=== PATIENT | male | born 1970 | race Two or more races ===

== ENCOUNTER 2024-12-23 06:01 | Emergency (ER) | payer OTHER, SELFPAY ==
--- NOTE | 2024-12-23 | ECG_ITS ---
Test Reason : CP Blood Pressure : */* mmHG Vent. Rate : 67 BPM Atrial Rate : 67 BPM P-R Int : 144 ms QRS Dur : 88 ms QT Int : 390 ms P-R-T Axes : 63 -6 41 degrees QTcB Int : 412 ms Normal sinus rhythm Nonspecific T wave abnormality Abnormal ECG No previous ECGs available Referred By: Generic ED Physician Electronically Signed By: GERARD BANDA
--- NOTE | ~2024-12-23 | CT_ITS ---
CLINICAL HISTORY: LUQ pain, hernia CT abdomen and pelvis without contrast Comparison: None Findings: A 3 mm nodule is suggested within the right lower lobe on axial image 1. 2 mm pleural-based nodule, left lower lobe on axial 5. The liver, spleen, gallbladder, pancreas and adrenal glands are unremarkable. 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 There is a dilated thick-walled cystic structure within the right upper quadrant measuring up to 7.3 times 6.5 cm may be arising from the upper pole of the inferior kidney. There is mild stranding about this structure. There is no bowel obstruction or free air. The appendix is normal. No free fluid. The bladder is partially distended. The prostate gland is unremarkable. No suspicious bone lesion. Mild atherosclerotic disease. 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 This may also reflect a dilated inferior renal pelvis. Correlation for urinary tract infection. A urogram with delayed imaging could be considered. This document has been electronically signed by: Cory Novoa MD on 12/23/2024 10:31:41
--- NOTE | ~2024-12-23 | XR_ITS ---
CLINICAL HISTORY: chest pain 1 view chest x-ray. Comparison: None Findings: The lungs are adequately expanded. No focal consolidation. No effusion or pneumothorax. Cardiac and mediastinal contours are within normal limits. No acute osseous abnormality Impression: No acute process. This document has been electronically signed by: Cory Novoa MD on 12/23/2024 09:37:01
[2024-12-23 06:13] VITALS: BP 137/76; PULSE 61; RESP 18; TEMP 36.6; O2SAT 97; BMI 27.4
--- NOTE | 2024-12-23 06:36 | PC.NURSE ---
pt initially checked in as CP so ekg was ordered per protocol. upon assessing for triage pt denies cp. reports feels lump to LUQ abdomen x 3 days, pain with movement. 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 also reports R. thumb pain, shooting pain up RUE with movement x 1 month. awaiting provider eval for further labs/imaging.
[2024-12-23 08:57] VITALS: BP 133/84; PULSE 52; RESP 14; TEMP 36.8; O2SAT 100
--- NOTE | 2024-12-23 08:59 | PC.NURSE ---
IV established, labs obtained and sent. urine provided as well
[2024-12-23 09:05] LABS: MANUAL DIFF FLAG NO
[2024-12-23 09:06] LABS: Basophils Percent Auto 0.8 % (0-2); Eosinophils Percent Auto 0.4 % (0-4); Hematocrit 46.2 % (42.0-52.0); Hemoglobin 15.5 g/dl (14.0-18.0); Imm Gran Abs Auto 0.01 X10*3/uL (0.00-0.03); Imm Gran Pct Auto 0.2 % (0.0-0.4); Lymphocytes Absolute Auto 2.4 X10*3/uL (1.2-4.9); Lymphocytes Percent Auto 45.4 % (20-40); Mean Corpuscular HGB Conc 33.5 g/dl (31.0-36.0); Mean Corpuscular Hemoglobin 30.6 pg (27.0-33.0); Mean Corpuscular Volume 91.3 fL (80.0-98.0); Mean Platelet Volume 9.9 fL (9.4-12.4); Monocytes Absolute Auto 0.5 X10*3/uL (0.1-1.2); Monocytes Percent Auto 9.8 % (2-11); Neutrophils Absolute Auto 2.3 x10*3/uL (2.0-8.3); Neutrophils Percent Auto 43.4 % (45-73); Platelet Count 197 X10*3/uL (160-400); Red Blood Count 5.06 X10*6/uL (4.60-5.80); Red Cell Distribution Width 13.4 % (11.0-16.0); White Blood Count 5.3 X10*3/uL (4.8-10.8)
--- NOTE | 2024-12-23 09:11 | ED_ITS ---
HPI - General Adult General Chief complaint: General Medical Stated complaint: chest pain Time Seen by Provider: 12/23/24 08:45 Source: patient and emergency specialist (Wallisian Creole) Mode of arrival: ambulatory Limitations: no limitations History of Present Illness ED Provider: DR. Waters HPI narrative: 54-year-old male Wallisian Creole speaking only presented with 3 days of left upper quadrant/ lower chest pain for 3 days pain is intermittent, no clear aggravating factor, no clear relieving factor, no SOB, no fever, no chills, no recent travel, no lower extremity swelling or tenderness. No chest trauma Or injury. No nausea, no vomiting, no diarrhea, no recent travel, no exposure to bad food, no sick contacts. Patient is also complaining of right thumb pain x1 month. Related Data Allergies Allergy/AdvReac Type Severity Reaction Status Date / Time No Known Allergies Allergy Verified 12/23/24 06:18 Review of Systems 2 Review of Systems: all other systems are reviewed and are negative Constitutional: Reports as per HPI and Reports no additional constitutional complaints Eyes: Reports as per HPI and Reports no additional eye complaints Reports system reviewed and no additional complaints, except as documented Cardiovascular: Reports as per HPI and Reports no additional cardiovascular complaints Respiratory: Reports as per HPI and Reports no additional respiratory complaints Gastrointestinal: Reports as per HPI and Reports no additional gastrointestinal complaints Genitourinary: Reports no additional female genitourinary complaints Musculoskeletal: Reports no additional musculoskeletal complaints Skin/Breast: Reports system reviewed and no additional complaints, except as docu Psychiatric: Reports no additional psychiatric complaints Endocrine: Reports no additional endocrine complaints Hematologic/Lymphatic: Reports no additional hematologic/lymphatic complaints Allergic/Immunologic: Reports no additional allergic/immunologic complaints Reports system reviewed and no additional complaints, except as documented and Reports Abnormal speech present [facility] Social History Social History Advance Directives: No Advance Directives Information Provided: No Do you have a plan to hurt others: No Plan Physical Exam ED Vital Signs: Vital Signs - 24 hr 12/23/24 06:13 12/23/24 08:57 Temperature 97.8 F 98.2 F Pulse Rate 61 52 Respiratory Rate 18 14 Blood Pressure 137/76 133/84 Pulse Oximetry 97 100 Oxygen Delivery Method Room Air Room Air BMI result Body Mass Index 27.4 Vital signs have been reviewed and appear to be correct. Blood pressure elevated. Heart rate normal. Respiratory rate normal. Temperature normal. Oxygen saturation normal. Appearance: Alert. Oriented X3. No acute distress. Head: Normal external exam. Normocephalic. Atraumatic. No Zapata signs noted. No raccoon eyes noted Eyes: PERRLA. EOMI. Conjunctiva and sclera normal. Eyelids normal. ENT: TM's Normal. Pharynx normal. Uvula midline. Moist mucous membranes. No trismus noted. No drooling noted. No muffled voice noted. Neck: Normal inspection. Neck supple. FROM. No adenopathy. Thyroid Normal. No meningeal signs. No neck mass noted. CVS: Normal heart rate and rhythm. Heart sound normal. No murmurs noted. Pulses normal throughout. Respiratory: No respiratory distress. Painless inspiration. Breath sounds normal. No wheezes/rales/rhonchi noted. reproducible tenderness over left lower border of the sternum No accessory muscle usage noted or decreased air movement noted. Abdomen: Soft and nontender. Bowel sounds normal in all 4 quadrants. No distention noted. No organomegaly noted. No visible injury noted. Back: No CVA tenderness. Full range of motion noted. Skin: Skin warm and dry. Normal skin color. Normal skin turgor. No rashes/lesions/lacerations noted. Extremities: right hand exam: No deformity, no step-off, full range of motion of the thumb, neurovascularly intact. Neuro: Oriented X 3. Cranial nerve exam: II-XII are grossly intact No motor deficit. No sensory deficit. Reflexes normal. Course Reevaluation(s) Reevaluation #1: 54-year-old male with chest pain x3 days, exam is consistent with costochondritis. CT abdomen and pelvis showed no acute pathology. Time: 12:00 Medical Decision Making Differential Diagnosis Differential Diagnoses: The differential diagnosis associated with the presentation includes ( ACS, pneumonia, pneumothorax, pleural effusion, pancreatitis, gastritis, hernia, electrolyte derangement, severe anemia) Admission/Observation Consideration of admission/observation: Escalation of care including admission/observation considered Lab Data MDM Lab Attestation statement: I reviewed the patient's lab results. 12/23/24 08:45 12/23/24 08:45 Labs: Lab Results 12/23/24 Range/Units 08:45 WBC 5.3 (4.8-10.8) X10*3/uL RBC 5.06 (4.60-5.80) X10*6/uL Hgb 15.5 (14.0-18.0) g/dl Hct 46.2 (42.0-52.0) % MCV 91.3 (80.0-98.0) fL MCH 30.6 (27.0-33.0) pg MCHC 33.5 (31.0-36.0) g/dl RDW 13.4 (11.0-16.0) % Plt Count 197 (160-400) X10*3/uL MPV 9.9 (9.4-12.4) fL Immature Gran % (Auto) 0.2 (0.0-0.4) % Neut % (Auto) 43.4 L (45-73) % Lymph % (Auto) 45.4 H (20-40) % Sterling % (Auto) 9.8 (2-11) % Eos % (Auto) 0.4 (0-4) % Baso % (Auto) 0.8 (0-2) % Lymph # (Auto) 2.4 (1.2-4.9) X10*3/uL Sterling # (Auto) 0.5 (0.1-1.2) X10*3/uL Eos # (Auto) 0.0 (0.0-0.4) X10*3/uL Baso # (Auto) 0.0 (0.0-0.2) X10*3/uL Abs Immat Gran (auto) 0.01 (0.00-0.03) X10*3/uL Absolute Neuts (auto) 2.3 (2.0-8.3) x10*3/uL Absolute Nucleated RBC 0.000 (0.0-0.012) X10*3/uL Nucleated RBC % (auto) 0.0 (0.0-0.2) /100WBC Hold Blue Top SEE NOTE Sodium 142 (135-145) mmol/L Potassium 4.5 (3.3-5.1) mmol/L Chloride 108 (96-108) mmol/L Carbon Dioxide 24 (22-29) mmol/L Anion Gap 15 (12-20) BUN 17 H (9-16) mg/dL Creatinine 0.75 (0.5-1.4) mg/dL Estim Creat Clear Calc 110.2 Estimated GFR > 60 Random Glucose 107 (60-115) mg/dL Calcium 8.9 (8.4-10.2) mg/dL Total Bilirubin 0.3 (0.0-1.0) mg/dL AST 22 (5-37) U/L ALT 28 (0-40) U/L Alkaline Phosphatase 99 (39-117) U/L Total Protein 7.9 (6.5-8.0) g/dL Albumin 4.2 (3.5-5.0) g/dL Lipase 30 (8-78) U/L Urine Color Yellow Urine Appearance Clear Urine pH 6.0 (5.0-9.0) Ur Specific [place] 1.020 (1.005-1.025) Urine Protein Negative (Neg-Trace) mg/dL Urine Glucose (UA) Negative (Negative) mg/dL Urine Ketones Negative (Negative) mg/dL Urine Blood Negative (Negative) Urine Nitrite Negative (Negative) Ur Leukocyte Esterase Negative (Negative) Independent Interpretation I performed an independent interpretation of an: Plain X-Ray ( chest: No acute pathology.) and CT Scan ( Abdomen and pelvis: A 3 mm nodule is suggested within the right lower lobe on axial image 1. 2 mm pleural-based nodule, left lower lobe on axial 5. The liver, spleen, gallbladder, pancreas and adrenal glands are unremarkable. 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 Discharge Plan Discharge Clinical Impression: Costochondritis Patient Disposition: Home, Self-Care Instructions: Costochondritis (ED) Additional Instructions: take ibuprofen 200 mg tablet ([id number]) every 6 hours if needed for pain. Referrals: Johnnie Nam MD [Primary Care Provider] - Print Language: Wallisian Creole
[2024-12-23 09:14] LABS: Appearance Urine Clear; Color Urine Yellow; Glucose Urine UA Negative (Negative); Leukocyte Esterase Urine Negative (Negative); Nitrite Urine Negative (Negative); Urine Blood Negative (Negative); Urine Ketones Negative (Negative); Urine Protein Negative (Neg-Trace)
[2024-12-23 09:15] LABS: Alanine Aminotransferase 28 U/L (0-40); Albumin Level 4.2 g/dL (3.5-5.0); Alkaline Phosphatase 99 U/L (39-117); Anion Gap 15 (12-20); Aspartate Amino Transferase 22 U/L (5-37); Bilirubin Total 0.3 mg/dL (0.0-1.0); Blood Urea Nitrogen 17 mg/dL (9-16); Calcium 8.9 mg/dL (8.4-10.2); Carbon Dioxide 24 mmol/L (22-29); Chloride 108 mmol/L (96-108); Creatinine Clr Calc Pharmacy 110.2; Estimated Glomerular Filt Rate > 60; Glucose Random 107 mg/dL (60-115); Potassium 4.5 mmol/L (3.3-5.1); Sodium 142 mmol/L (135-145); Total Protein 7.9 g/dL (6.5-8.0)
[2024-12-23 10:01] LABS: Lipase 30 U/L (8-78)
[2024-12-23 13:07] VITALS: BP 126/80; PULSE 67; RESP 15; TEMP 36.7; O2SAT 97
[2024-12-23 13:25] VITALS: BP 126/80; PULSE 67; RESP 15; TEMP 36.7; O2SAT 97
== END 2024-12-23 13:26 | disposition home or self-care (01) ==
PROVIDERS: Emergency Provider Emergency Medicine; PCP Internal Medicine
DX: M94.0 Chondrocostal junction syndrome [Tietze] (principal); R07.89 Other chest pain; R10.12 Left upper quadrant pain; R10.2 Pelvic and perineal pain; Z79.899 Other long term (current) drug therapy
CPT/HCPCS: 36415; 71045; 74176; 80053; 81003; 83690; 85025; 93005; 99284

== ENCOUNTER → 2024-12-23 06:10 | Outpatient (BNV) | payer OTHER, SELFPAY | PROVIDERS: Emergency Provider Emergency Medicine; PCP Internal Medicine; Visit Provider Internal Medicine | DX: R94.31 Abnormal electrocardiogram [ECG] [EKG] (principal); R07.9 Chest pain, unspecified | CPT/HCPCS: 93010 ==

== ENCOUNTER → 2024-12-23 09:10 | Outpatient (BNV) | payer OTHER, SELFPAY | PROVIDERS: Emergency Provider Emergency Medicine; PCP Internal Medicine; Visit Provider Radiology Vascular & Interventional Radiology | DX: N20.0 Calculus of kidney (principal); R07.9 Chest pain, unspecified | CPT/HCPCS: 71045; 74176 ==

== ENCOUNTER 2025-01-16 12:06 | Outpatient (REF) | payer OTHER, SELFPAY ==
--- NOTE | ~2025-01-16 | XR_ITS ---
EXAMINATION: XR ABDOMEN 1 VIEW (KUB) HISTORY: lower abdominal pain COMPARISON: There are no prior studies for comparison. FINDINGS: Three supine views of the abdomen are submitted. The bowel gas pattern is unremarkable, without evidence of mechanical obstruction. There is a moderate amount of stool throughout the colon. There is a phlebolith in the right hemipelvis. There are no abnormal soft tissue masses. The bones are intact. XR/XR KUB IMPRESSION: Moderate amount of stool throughout the colon. Electronically signed by: Johnathon Padron MD 01/16/2025 01:42 PM KEVIN PAGE
--- OUTSIDE RECORDS SUMMARY | 2025-01-16 15:05 | XMS_ITS | Clinical Summary ---
Author Organization [employer] Address [address] [place] [address] Care Team Providers Care Vault Custodian Name Role Phone Unavailable Primary Care Provider Unavailabl e Allergies No known active allergies Medications ibuprofen 600 MG tabletIndicati ons:Right inguinal pain Take 1 tablet (600 mg) by mouth every 6 (six) hours if needed for mild pain for up to 14 days. 46 tablet 5 025 Active baclofen (Lioresal) 10 MG tabletIndicati ons:Right inguinal pain Take one tablet TID PRN 30 tablet 5 Active Blood Pressure kitIndications :Elevated blood pressure reading 1 each 2 times daily. 1 kit 5 026 Active psyllium (Metamucil Smooth Texture) 58.6 % powder Mix 1-2 tablespoonfuls in 8 oz of liquid and drink daily. 425 g 1 5 Active senna (Senokot) 8.6 MG tablet Take 1 tablet (8.6 mg) by mouth if needed at bedtime for constipation. 30 tablet 5 025 Active Encounters Date Type Department Care Team Description 01/16/2025 Telephone [facility] [address] [place] [phone] Sil Paris, RN Results 01/10/2025 2:20 PM EST Office Visit [facility] [address] [place], [place] [phone] Right inguinal pain (Primary Dx); Lower abdominal pain; Elevated blood pressure reading 01/10/2025 Telephone [facility] [address] [place], [place] [phone] Alma Islas, [facility] ED visit 12/23/23 from Last 3 Months Social History Tobacco Use Types Packs/Day Years Used Date Smoking Tobacco: Never Assessed Sex and Gender Information Value Date Recorded Sex Assigned at Male 01/10/2025 1:31 PM EST Legal Sex Male 1:02 PM EST Gender Identity Male 01/10/2025 1:31 PM EST Sexual Orientation Straight 01/10/2025 1: 31 PM EST Last Filed Vital Signs Vital Sign Reading Time Taken Comments Blood Pressure 140/84 01/10/2025 2:15 PM EST Pulse 68 01/10/2025 2:15 PM EST Temperature 36.7 ??C (98 ??F) 01/10/2025 2:15 PM EST Respiratory Rate 18 01/10/2025 2:15 PM EST Oxygen Saturation 97% 01/10/2025 2:15 PM EST Inhaled Oxygen Concentration - - Weight 84.1 kg (185 lb 6.4 oz) 01/10/2025 2:15 P M EST Height - - Body Mass Index - - Plan of Treatment Upcoming Encounters Date Type Department Care Team (Late st Contact Info) Description 02/25/2025 3:45 PM EDT Office Visit [facility] [address] [place], [place] [phone] Ayesha Szymanski NP [address] [place] [address] Health Maintenance Due Date Last Done Comments CT Colonography 1971 Colonoscopy 1971 Colorectal Cancer Screening 1971 Depression Screening 1971 FIT DNA/Cologuard 1971 FIT 1971 FOBT 1971 HIV Screening 1971 Lipid Panel 1971 SDOH Screening 1971 Sigmoidoscopy 1971 Alcohol/Substance Use Screening 1983 Tobacco Screening 1983 Hepatitis C Screening 1989 DTaP/Tdap/Td Vaccines (1 - Tdap) 1990 Hepatitis B Vaccines (1 of 3 - 19+ 3-dose series) 1990 Pneumococcal Vaccine: 50+ Ye ars (1 of 1 - PCV) 2021 Zoster Vaccines (1 of 2) 2021 COVID-19 Vaccine ( - 2023-2 5 season) 2024 Influenza Vaccine (#1) 2024 RSV Patients and Pa tients Aged 60 years or older (1 - 1-dose 75+ series) 2046 HIB Vaccines Aged Out No longer eligi ble based on patient's age to complete this topic HPV Vaccines Aged Out No longer eligi ble based on patient's age to complete this topic Hepatitis A Vaccines Aged Out No long er eligible based on patient's age to complete this topic IPV Vaccines Aged Out No longer eligi ble based on patient's age to complete this topic Meningococcal Vaccine Aged Out No cash anali eligible based on patient's age to complete this topic RSV under 20 months Aged Out No longe r eligible based on patient's age to complete this topic Rotavirus Vaccines Aged Out No longer eligible based on patient's age to complete this topic Procedures Procedure Name Priority Date/Time Associated Diagnosis Comments XR KUB AND UPRIGHT 2 VIEWS Routine 01/16/2025 12:07 PM EST Lower abdominal pain from Last 3 Months Results * XR KUB and Upright 2 Views (01/16/2025 12:07 PM EST) Anatomical Region Laterality Modality Radiographic Denise ging 01/16/2025 12:0 7 PM EST Narrative 01/16/2025 1:45 PM EST ?[facility] ?[address] ?[place] [address] ?XRay Report ? Signed ? Patient: Filippo Santiago ?MR#: [id number] ?? [id number] ? : 1970 ?Acct:[id number] ? Age/Sex: 54 / M ?ADM Date: 01/16/25 ? Loc: HO.HHCX ? Attending Dr: Shantel Huffman ? Ordering Physician: Shantel Huffman ?? Date of Service: 01/16/25 ?? Procedure(s): XR KUB ?? Accession Number(s): [id number] ? cc: Shantel Huffman ? EXAMINATION: ??XR ABDOMEN 1 VIEW (KUB) ? HISTORY: lower abdominal pain ? COMPARISON: There are no prior studies for comparison. ? FINDINGS: ??Three supine views of the abdomen are submitted. ?? The bowel ?? gas pattern is unremarkable, without evidence of mechanical ?? obstruction. There is a moderate amount of stool throughout the colon. ? There is a phlebolith in the right hemipelvis. ?? There are no abnormal ?? soft tissue masses. ??The bones are intact. ? XR/XR KUB ?? IMPRESSION: ?? Moderate amount of stool throughout the colon. ? Electronically signed by: ??Johnathon Padron MD ??01/16/2025 01:42 PM EST ?? RP ? Dictated By: ?Johnathon Padron MD ? Signed By: ?<Electronically signed by Johnathon Padron MD in OV> ?01/16/25 1342 ? DD/ 1207 ? TD/TT: 01/16/25 1300 ? Priest: ? Procedure Note Donjacqui, Image - 01/16/[address] [address] XRay Report Signed Patient: Filippo SantiagoMR#: [id number] : 1970Acct:[id number] Age/Sex: 54 / MADM Date: 01/16/25 Loc: HO.HHCX Attending Dr: Shantel Huffman Ordering Physician: Shantel Huffman Date of Service: 01/16/25 Procedure(s): XR KUB Accession Number(s): [id number] cc: Shantel Huffman EXAMINATION: XR ABDOMEN 1 VIEW (KUB) HISTORY: lower abdominal pain COMPARISON: There are no prior studies for comparison. FINDINGS: Three supine views of the abdomen are submitted. The bowel gas pattern is unremarkable, without evidence of mechanical obstruction. There is a moderate amount of stool throughout the colon. There is a phlebolith in the right hemipelvis. There are no abnormal soft tissue masses. The bones are intact. XR/XR KUB IMPRESSION: Moderate amount of stool throughout the colon. Electronically signed by: Johnathon Padron MD 01/16/2025 01:42 PM EST Dictated By: Johnathon Padron MD Signed By: <Electronically signed by Johnathon Padron MD in OV> 01/16/25 1342 DD/ 1207 TD/TT: 01/16/25 1300 Priest: Shantel Huffman NP IMG XR PROCEDURES Final Result from Last 3 Months Insurance [facility] C3
--- OUTSIDE RECORDS SUMMARY | 2025-01-16 15:05 | XMS_ITS | Encounter Summary ---
Author Organization [employer] Address [address] [facility] 7[address] [place] [address] Care Team Providers Care Clinical Study Manager Name Role Phone Unavailable Primary Care Provider Unavailabl e Reason for Visit * Reason Onset Date Comments [facility] ED visit 12/23/23 01/10/2025 Encounter Details Date Type Department Care Team (Late st Contact Info) Description 01/10/2025 Telephone [facility] [address] [place] [address] Alma Islas RN [facility] ED visit 12/23/23 Social History Tobacco Use Types Packs/Day Years Used Date Smoking Tobacco: Never Assessed Sex and Gender Information Value Date Recorded Sex Assigned at Male 01/10/2025 1:31 PM EST Legal Sex Male 1:02 PM EST Gender Identity Male 01/10/2025 1:31 PM EST Sexual Orientation Straight 01/10/2025 1: 31 PM EST documented as of this encounter Miscellaneous Notes * Telephone Encounter - Alma Islas RN - 01/10/2025 1:38 PM EST [facility] ED 12/23/23 visit: Emergency Department Note Signed Patient: Filippo Santiago MR#: [id number] : 1970 Acct:[id number] Age/Sex: 54 / M ADM Date: 12/23/24 [facility] [address] [address] Electrocardiograph Report Signed Patient: Filippo Santiago MR#: [id number] : 1970 Acct:[id number] Age/Sex: 54 / M ADM Date: 12/23/24 [facility]: Ordering Physician: Yana Waters MD Date of Service: 12/23/24 Procedure(s): ECG 12 lead EKG Accession Number(s): [id number] cc: Yana Waters MD~ Test Reason : CP Blood Pressure : */* mmHG Vent. Rate : 67 BPM Atrial Rate : 67 BPM P-R Int : 144 ms QRS Dur : 88 ms QT Int : 390 ms P-R-T Axes : 63 -6 41 degrees QTcB Int : 412 ms Normal sinus rhythm Nonspecific T wave abnormality Abnormal ECG No previous ECGs available Referred By: Generic ED Physician Electronically Signed By: ANTHONY BANDA Dictated By: Anthony Banda MD cc: Johnnie Nam MD~ HPI - General Adult General Chief complaint: General Medical Stated complaint: chest pain Time Seen by Provider: 12/23/24 08:45 Source: patient and public relations professional (Gambian Creole) Mode of arrival: ambulatory Limitations: no limitations History of Present Illness ED Provider: DR. Waters HPI narrative: 54-year-old male Gambian Creole speaking only presented with 3 days of left upper quadrant/ lower chest pain for 3 days pain is intermittent, no clear aggravating factor, no clear relieving factor, no SOB, no fever, no chills, no recent travel, no lower extremity swelling or tenderness. No chest trauma Or injury. No nausea, no vomiting, no diarrhea, no recent travel, no exposure to bad food, no sick contacts. Patient is also complaining of right thumb pain x1 month. Related Data Allergies Allergy/AdvReac Type Severity Reaction Status Date / Time No Known Allergies Allergy Verified 12/23/24 06:18 Review of Systems Review of Systems: all other systems are reviewed and are negative Constitutional: Reports as per HPI and Reports no additional constitutional complaints Eyes: Reports as per HPI and Reports no additional eye complaints Reports system reviewed and no additional complaints, except as documented Cardiovascular: Reports as per HPI and Reports no additional cardiovascular complaints Respiratory: Reports as per HPI and Reports no additional respiratory complaints Gastrointestinal: Reports as per HPI and Reports no additional gastrointestinal complaints Genitourinary: Reports no additional female genitourinary complaints Musculoskeletal: Reports no additional musculoskeletal complaints Skin/Breast: Reports system reviewed and no additional complaints, except as docu Psychiatric: Reports no additional psychiatric complaints Endocrine: Reports no additional endocrine complaints Hematologic/Lymphatic: Reports no additional hematologic/lymphatic complaints Allergic/Immunologic: Reports no additional allergic/immunologic complaints Reports system reviewed and no additional complaints, except as documented and Reports Abnormal speech present [facility] Social History Social History Advance Directives: No Advance Directives Information Provided: No Do you have a plan to hurt others: No Plan Physical Exam ED Vital Signs: Vital Signs - 24 hr 12/23/24 06:13 12/23/24 08:57 Temperature 97.8 F 98.2 F Pulse Rate 61 52 Respiratory Rate 18 14 Blood Pressure 137/76 133/84 Pulse Oximetry 97 100 Oxygen Delivery Method Room Air Room Air BMI result Body Mass Index 27.4 Vital signs have been reviewed and appear to be correct. Blood pressure elevated. Heart rate normal. Respiratory rate normal. Temperature normal. Oxygen saturation normal. Appearance: Alert. Oriented X3. No acute distress. Head: Normal external exam. Normocephalic. Atraumatic. No [place] signs noted. No raccoon eyes noted Eyes: PERRLA. EOMI. Conjunctiva and sclera normal. Eyelids normal. ENT: TM's Normal. Pharynx normal. Uvula midline. Moist mucous membranes. No trismus noted. No drooling noted. No muffled voice noted. Neck: Normal inspection. Neck supple. FROM. No adenopathy. Thyroid Normal. No meningeal signs. No neck mass noted. CVS: Normal heart rate and rhythm. Heart sound normal. No murmurs noted. Pulses normal throughout. Respiratory: No respiratory distress. Painless inspiration. Breath sounds normal. No wheezes/rales/rhonchi noted. reproducible tenderness over left lower border of the sternum No accessory muscle usage noted or decreased air movement noted. Abdomen: Soft and nontender. Bowel sounds normal in all 4 quadrants. No distention noted. No organomegaly noted. No visible injury noted. Back: No CVA tenderness. Full range of motion noted. Skin: Skin warm and dry. Normal skin color. Normal skin turgor. No rashes/lesions/lacerations noted. Extremities: right hand exam: No deformity, no step-off, full range of motion of the thumb, neurovascularly intact. Neuro: Oriented X 3. Cranial nerve exam: II-XII are grossly intact No motor deficit. No sensory deficit. Reflexes normal. Course Reevaluation(s) Reevaluation #1: 54-year-old male with chest pain x3 days, exam is consistent with costochondritis. CT abdomen and pelvis showed no acute pathology. Time: 12:00 Medical Decision Making Differential Diagnosis Differential Diagnoses: The differential diagnosis associated with the presentation includes ( ACS,pneumonia, pneumothorax, pleural effusion, pancreatitis, gastritis, hernia, electrolyte derangement, severe anemia) Admission/Observation Consideration of admission/observation: Escalation of care including admission/observation considered Lab Data MDM Lab Attestation statement: I reviewed the patient's lab results. 12/23/24 08:45 document embedded image 12/23/24 08:45 document embedded image Labs: Lab Results 12/23/24 Range/Units 08:45 WBC 5.3 (4.8-10.8) X10*3/uL RBC 5.06 (4.60-5.80) X10*6/uL Hgb 15.5 (14.0-18.0) g/dl Hct 46.2 (42.0-52.0) % MCV 91.3 (80.0-98.0) fL MCH 30.6 (27.0-33.0) pg MCHC 33.5 (31.0-36.0) g/dl RDW 13.4 (11.0-16.0) % Plt Count 197 (160-400) X10*3/uL MPV 9.9 (9.4-12.4) fL Immature Gran % (Auto) 0.2 (0.0-0.4) % Neut % (Auto) 43.4 L (45-73) % Lymph % (Auto) 45.4 H (20-40) % [place] % (Auto) 9.8 (2-11) % Eos % (Auto) 0.4 (0-4) % Baso % (Auto) 0.8 (0-2) % Lymph # (Auto) 2.4 (1.2-4.9) X10*3/uL [place] # (Auto) 0.5 (0.1-1.2) X10*3/uL Eos # (Auto) 0.0 (0.0-0.4) X10*3/uL Baso # (Auto) 0.0 (0.0-0.2) X10*3/uL Abs Immat Gran (auto) 0.01 (0.00-0.03) X10*3/uL Absolute Neuts (auto) 2.3 (2.0-8.3) x10*3/uL Absolute Nucleated RBC 0.000 (0.0-0.012) X10*3/uL Nucleated RBC % (auto) 0.0 (0.0-0.2) /100WBC Hold Blue Top SEE NOTE Sodium 142 (135-145) mmol/L Potassium 4.5 (3.3-5.1) mmol/L Chloride 108 (96-108) mmol/L Carbon Dioxide 24 (22-29) mmol/L Anion Gap 15 (12-20) BUN 17 H (9-16) mg/dL Creatinine 0.75 (0.5-1.4) mg/dL Estim Creat Clear Calc 110.2 Estimated GFR > 60 Random Glucose 107 (60-115) mg/dL Calcium 8.9 (8.4-10.2) mg/dL Total Bilirubin 0.3 (0.0-1.0) mg/dL AST 22 (5-37) U/L ALT 28 (0-40) U/L Alkaline Phosphatase 99 (39-117) U/L Total Protein 7.9 (6.5-8.0) g/dL Albumin 4.2 (3.5-5.0) g/dL Lipase 30 (8-78) U/L Urine Color Yellow Urine Appearance Clear Urine pH 6.0 (5.0-9.0) Ur Specific [place] 1.020 (1.005-1.025) Urine Protein Negative (Neg-Trace) mg/dL Urine Glucose (UA) Negative (Negative) mg/dL Urine Ketones Negative (Negative) mg/dL Urine Blood Negative (Negative) Urine Nitrite Negative (Negative) Ur Leukocyte Esterase Negative (Negative) Independent Interpretation I performed an independent interpretation of an: Plain X-Ray ( chest: No acute pathology.) and CT Scan ( Abdomen and pelvis: A 3 mm nodule is suggested within the right lower lobe on axial image 1. 2mm pleural-based nodule, left lower lobe on axial 5. The liver, spleen, gallbladder, pancreas and adrenal glands are unremarkable. 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 Discharge Plan Discharge Clinical Impression: Costochondritis Patient Disposition: Home, Self-Care Instructions: Costochondritis (ED) Additional Instructions: take ibuprofen 200 mg tablet ([id number]) every 6 hours if needed for pain. Referrals: Johnnie Nam MD [Primary Care Provider] - Print Language: Gambian Creole Dictated By: Yana Waters MD Signed By: <Electronically signed by Yana Waters MD> 12/23/24 [id number] [place] [address] CT Scan Report Signed Patient: Filippo Santiago MR#: [id number] : 1970 Acct:[id number] Age/Sex: 54 / M ADM Date: 12/23/24 Loc: HO.ED Attending Dr: Ordering Physician: Yana Waters MD Date of Service: 12/23/24 Procedure(s): CT abdomen pelvis wo IV con Accession Number(s): [id number] cc: Yana Waters MD; Johnnie Nam MD~ Report Number: [id number]: Total DLP = 488.00 mGy-cm CLINICAL HISTORY: LUQ pain, hernia CT abdomen and pelvis without contrast Comparison: None Findings: A 3 mm nodule is suggested within the right lower lobe on axial image 1. 2 mm pleural-based nodule, left lower lobe on axial 5. The liver, spleen, gallbladder, pancreas and adrenal glands are unremarkable. 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 There is a dilated thick-walled cystic structure within the right upper quadrant measuring up to 7.3 times 6.5 cm may be arising from the upper pole of the inferior kidney. There is mild stranding about this structure. There is no bowel obstruction or free air. The appendix is normal. No free fluid. The bladder is partially distended. The prostate gland is unremarkable. No suspicious bone lesion. Mild atherosclerotic disease. 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 This may also reflect a dilated inferior renal pelvis. Correlation for urinary tract infection. A urogram with delayed imaging could be considered. This document has been electronically signed by: Cory Novoa MD on 12/23/2024 10:31:41 Dictated By: Cory Novoa MD Signed By: <Electronically signed by Cory Novoa MD in OV> 12/23/24 1032 documented in this encounter Plan of Treatment Upcoming Encounters Date Type Department Care Team (Late st Contact Info) Description 02/25/2025 3:45 PM EDT Office Visit [facility] [address] [place] [address] Ayesha Szymanski NP [address] [place] [address] documented as of this encounter Visit Diagnoses Not on filedocumented in this encounter
--- OUTSIDE RECORDS SUMMARY | 2025-01-16 15:05 | XMS_ITS | Encounter Summary ---
Author Organization [employer] Address [address] [facility] 7t [place] [address] Care Team Providers Care Car Salesperson Name Role Phone Unavailable Primary Care Provider Unavailabl e Reason for Visit * Reason Comments Abdominal Pain Encounter Details Date Type Department Care Team (Late Contact Info) Description 01/10/2025 2:20 PM EST Office Visit [facility] [address] [place] [id number] Right inguinal pain (Primary Dx); Lower abdominal pain; Elevated blood pressure reading Social History Tobacco Use Types Packs/Day Years Used Date Smoking Tobacco: Never Assessed Sex and Gender Information Value Date Recorded Sex Assigned at Male 01/10/2025 1:31 PM EST Legal Sex Male 1:02 PM EST Gender Identity Male 01/10/2025 1:31 PM EST Sexual Orientation Straight 01/10/2025 1: 31 PM EST documented as of this encounter Last Filed Vital Signs Vital Sign Reading [...] - - Body Mass Index - - documented in this encounter Plan of Treatment Upcoming Encounters Date Type Department Care Team ([facility] Contact Info) Description 02/25/2025 3:45 PM EDT Office Visit [facility] [address] [place] [address] Ayesha Szymanski NP [address] [place] [address] documented as of this encounter Procedures Procedure Name Priority Date/Time Associated Diagnosis Comments XR KUB AND UPRIGHT 2 VIEWS Routine 01/16/2025 12:07 PM EST Lower abdominal pain documented in this encounter Results * XR KUB and Upright 2 Views (01/16/2025 12:07 PM EST) Anatomical Region Laterality Modality Radiographic Denise ging 01/16/2025 12:0 7 PM EST Narrative 01/16/2025 1:45 PM EST ?[facility] ?[address] ?[place] [address] ?XRay Report ? Signed ? Patient: Filippo Santiago ?MR#: [id number] ?? [id number] ? : 1970 ?Acct:[id number] ? Age/Sex: 54 / M ?ADM Date: 01/16/25 ? Loc: HO.HHCX ? Attending Dr: Shantel Huffman ? Ordering Physician: Shantel Huffman ?? Date of Service: 01/16/25 ?? Procedure(s): XR KUB ?? Accession Number(s): [id number] ? cc: Shantel Huffman ? EXAMINATION: ??XR [...] DD/ 1207 ? TD/TT: 01/16/25 1300 ? Butting Saw Operator: ? Procedure Note Morris, Image - 01/16/2025 [facility] [address] [place] [address] XRay Report Signed Patient: Filippo SantiagoMR#: [id number] : 1970Acct:[id number] Age/Sex: 54 / MADM Date: 01/16/25 Loc: HO.HHCX Attending Dr: Shantel Huffman Ordering Physician: Shantel Huffman Date of Service: 01/16/25 Procedure(s): XR KUB Accession Number(s): [id number] cc: Shantel Huffman EXAMINATION: XR ABDOMEN 1 [...] by: Johnathon Padron MD 01/16/2025 01:42 PM [facility] Dictated By: Johnathon Padron MD Signed By: <Electronically signed by Johnathon Padron MD in OV> 01/16/25 1342 DD/ 1207 TD/TT: 01/16/25 1300 Butting Saw Operator: Shantel Huffman SHIPPING/RECEIVING MANAGER IMG XR PROCEDURES Final Result documented in this encounter Visit Diagnoses Diagnosis Right inguinal pain- Primary Abdominal pain, right lower quadrant Lower abdominal pain Abdominal pain, other specified site Elevated blood pressure reading Elevated blood pressure reading without diagnosis of hypertension documented in this encounter
--- OUTSIDE RECORDS SUMMARY | 2025-01-16 15:05 | XMS_ITS | Encounter Summary ---
Author Organization [employer] Address [address] [facility] [address]t [place] [address] Care Team Providers Care Curb And Gutter Laborer Name Role Phone Unavailable Primary Care Provider Unavailabl e Reason for Visit * Reason Onset Date Comments Results 01/16/2025 Encounter Details Date Type Department Care Team (Late st Contact Info) Description 01/16/2025 Telephone [facility] [address] [place] [address] Sil Paris RN Results Social History Tobacco Use Types Packs/Day Years Used Date Smoking Tobacco: Never Assessed Sex and Gender Information Value Date Recorded Sex Assigned at Male 01/10/2025 1:31 PM EST Legal Sex Male 1:02 PM EST Gender Identity Male 01/10/2025 1:31 PM EST Sexual Orientation Straight 01/10/2025 1: 31 PM EST documented as of this encounter Miscellaneous Notes * Telephone Encounter - Sil Paris RN - 01/16/2025 2:51 PM EST TC x 2 placed to pt via [employer] administrative support assistant (ID#[id number]) to inform of below provider message. No answer, LVM to call office back and ask to speak to [place] team nurses. ----- Message from Shantel Huffman sent at 01/16/2025 2:01 PM EST ----- Please call and inform patient of KUB results which confirms suspicion of constipation as discussedduring his visit. Re-iterate increasing high fiber foods and fluids. I will also send a script for metamucil and senna to the pharmacy for him. Please review usage instructions while interpretor is av ailable on the phone. Thanks documented in this encounter Plan of Treatment Upcoming Encounters Date Type Department Care Team (Late st Contact Info) Description 02/25/2025 3:45 PM EDT Office Visit [facility] [address] [place] [address] Ayesha Szymanski NP [address] [place] [address] documented as of this encounter Visit Diagnoses Not on filedocumented in this encounter
== END 2025-01-16 12:07 | disposition home or self-care (01) ==
LOC: HO.HHCX 12:06
PROVIDERS: Visit Provider Nurse Practitioner
DX: R10.30 Lower abdominal pain, unspecified (principal)
CPT/HCPCS: 74018

== ENCOUNTER → 2025-01-16 12:07 | Outpatient (BNV) | payer OTHER, SELFPAY | PROVIDERS: Visit Provider Radiology Diagnostic Radiology | DX: K59.00 Constipation, unspecified (principal) | CPT/HCPCS: 74018 ==

== ENCOUNTER 2025-01-31 11:45 | Outpatient (REF) | payer OTHER, SELFPAY ==
--- NOTE | ~2025-01-31 | XR_ITS ---
EXAMINATION: XR CERVICAL SPINE CLINICAL INFORMATION: PAIN; right arm pain and numbness x2 months. Right thumb pain and swelling. COMPARISON: None available. TECHNIQUE: 3 views of the cervical spine were obtained. FINDINGS: There is no scoliosis. There is a normal lordosis. There is no subluxation. Craniocervical junction and C1-2 articulation are intact and aligned. No fractures, compression deformities, or suspicious bone lesions. Minimal disc degeneration present C5-6 and C6-7. Normal facet alignment. The prevertebral soft tissues appear normal. Lung apices are clear. XR/XR cervical spine 3V IMPRESSION: 1. No acute bony abnormalities of the cervical spine. 2. Minimal disc degeneration C5-6 and C6-7. Electronically signed by: Will Garcia MD 01/31/2025 12:41 PM EDT
--- NOTE | ~2025-01-31 | XR_ITS ---
EXAMINATION: XR HAND, RIGHT CLINICAL INFORMATION: R thumb pain and swelling COMPARISON: None available. TECHNIQUE: PA, lateral, and oblique views of the right hand. FINDINGS: The bones and soft tissues are normal. No fracture. Alignment is anatomic. Joint spaces are maintained. No erosions or soft tissue calcifications. XR/XR hand RT min 3V IMPRESSION: Normal right hand. Electronically signed by: Will Garcia MD 01/31/2025 12:45 PM EDT
--- OUTSIDE RECORDS SUMMARY | 2025-01-31 15:11 | XMS_ITS | Encounter Summary ---
Author Organization [employer] Address [address] [facility] [address] [place] [address] Care Team Providers Care Forge Operator Name Role Phone Ayesha Szymanski NP Primary Care Provider [phone] Reason for Visit * Reason Comments Med Change Request Encounter Details Date Type Department Care Team (Late st Contact Info) Description 01/23/2025 Refill [facility] [address] [place] [address] Shantel Huffman NP [address] [place] [address] Social History Tobacco Use Types Packs/Day Years Used Date Smoking Tobacco: Never Smokeless Tobacco: Never Alcohol Use Standard Drinks/Week Comments Yes 0 (1 standard drink = 0.6 oz pur e alcohol) Sex and Gender Information Value Date Recorded Sex Assigned at Male 01/10/2025 1:31 PM EST Legal Sex Male 1:02 PM EST Gender Identity Male 01/10/2025 1:31 PM EST Sexual Orientation Straight 01/10/2025 1: 31 PM EST documented as of this encounter Plan of Treatment Upcoming Encounters Date Type Department Care Team (Late st Contact Info) Description 02/25/2025 3:45 PM EDT Office Visit [facility] [address] [place] [address] Ayesha Szymanski NP [address] [place] [address] documented as of this encounter Visit Diagnoses Not on filedocumented in this encounter Care Teams Forge Operator Relationship Specialty Start Date End Date Ayesha Szymanski NP [address] [place] [address] PCP - General Family Medicine 01/21/25 documented as of this encounter
--- OUTSIDE RECORDS SUMMARY | 2025-01-31 15:11 | XMS_ITS | Encounter Summary ---
Author Organization [employer] Address [address] [facility] [address] [place] [address] Care Team Providers Care Setter Off Name Role Phone Unavailable Primary Care Provider Unavailabl e Reason for Visit * Reason Onset Date Comments Results 01/16/2025 Encounter Details Date Type Department Care Team (Late st Contact Info) Description 01/16/2025 Telephone [facility] [address] [place] [address] Sil Paris RN Results Social History Tobacco [...] TC x 2 placed to pt via [email or web address] director of rooms (ID#[id number]) to inform of below provider message. No answer, LVM to call office back and ask to speak to [place] team nurses. ----- Message from Shantel Huffman [...] Office Visit [facility] [address] [place] [address] Ayesha Szymanski NP [address] [place] [address] documented as of this encounter Visit Diagnoses Not on filedocumented in this encounter
--- OUTSIDE RECORDS SUMMARY | 2025-01-31 15:11 | XMS_ITS | Encounter Summary ---
Author Organization [employer] Address 75 [facility] 7t [place] [address] Care Team Providers Care Floor Mechanic Name Role Phone Ayesha Szymanski NP Primary Care Provider [phone] Encounter Details Date Type Department Care Team (Late st Contact Info) Description 01/31/2025 Orders Only [facility] [address] [place] [address] Carmen Nagy DO [address] [place] [address] Social History Tobacco Use Types Packs/Day Years [...] Description 02/25/2025 3:45 PM EDT Office Visit [facility] [address] [place] [address] Ayesha Szymanski NP [address] [place] [address] documented as of this encounter Procedures Procedure Name Priority Date/Time Associated Diagnosis Comments XR CERVICAL SPINE 3V Routine 01/31/2025 11:47 AM EDT documented in this encounter Results * XR CERVICAL SPINE 3V (01/31/2025 11:47 AM EDT) Anatomical Region Laterality Modality Abdomen Radiographic Denise ging 01/31/2025 11:4 7 AM EDT Narrative 01/31/2025 12:44 PM EDT ?[facility] ?[address] ?[place] [address] ?XRay Report ? Signed ? Patient: Lomassimojean,Filippo ?MR#: [id number] ?? 795 ? : 1970 ?Acct:[id number] ? Age/Sex: 54 / M ?ADM Date: 01/31/25 ? Loc: HO.HHCX ? Attending Dr: Carmen Nagy DO ? Ordering Physician: Carmen Nagy DO ?? Date of Service: 01/31/25 ?? Procedure(s): XR cervical spine 3V ?? Accession Number(s): [id number] ? cc: Carmen Nagy DO ? EXAMINATION: ?? XR CERVICAL SPINE ? CLINICAL INFORMATION: ?? PAIN; right arm pain and numbness x2 months. Right thumb pain and ?? swelling. ? COMPARISON: ?? None available. ? TECHNIQUE: ?? 3 views of the cervical spine were obtained. ? FINDINGS: ?? There is no scoliosis. There is a normal lordosis. There is no ?? subluxation. ?? Craniocervical junction and C1-2 articulation are intact and aligned. ?? No fractures, compression deformities, or suspicious bone lesions. ?? Minimal disc degeneration present C5-6 and C6-7. ?? Normal facet alignment. ? The prevertebral soft tissues appear normal. Lung apices are clear. ? XR/XR cervical spine 3V ?? IMPRESSION: ?? 1. No acute bony abnormalities of the cervical spine. ?? 2. Minimal disc degeneration C5-6 and C6-7. ? Electronically signed by: ??Will Garcia MD ??01/31/2025 12:41 PM EDT RP ? Dictated By: ?Will Garcia MD ? Signed By: ?<Electronically signed by Will Garcia MD in OV> ?01/31/25 1241 ? DD/ 1147 ? TD/TT: 01/31/25 1200 ? Heading Repairer: ? Procedure Note Darcy Caceres - 01/31/2025 [facility] [address] [place] [address] XRay Report Signed Patient: Filippo SantiagoMR#: [id number] 795 : 1970Acct:[id number] Age/Sex: 54 / MADM Date: 01/31/25 Loc: HO.HHCX Attending Dr: Carmen Nagy DO Ordering Physician: Carmen Nagy DO Date of Service: 01/31/25 Procedure(s): XR cervical spine 3V Accession Number(s): [id number] cc: Carmen Nagy DO EXAMINATION: XR CERVICAL SPINE CLINICAL INFORMATION: PAIN; right arm pain and numbness x2 months. Right thumb pain and swelling. COMPARISON: None available. TECHNIQUE: 3 views of the cervical spine were obtained. FINDINGS: There is no scoliosis. There is a normal lordosis. There is no subluxation. Craniocervical junction and C1-2 articulation are intact and aligned. No fractures, compression deformities, or suspicious bone lesions. Minimal disc degeneration present C5-6 and C6-7. Normal facet alignment. The prevertebral soft tissues appear normal. Lung apices are clear. XR/XR cervical spine 3V IMPRESSION: 1. No acute bony abnormalities of the cervical spine. 2. Minimal disc degeneration C5-6 and C6-7. Electronically signed by: Will Garcia MD 01/31/2025 12:41 PM EDT Dictated By: Will Garcia MD Signed By: <Electronically signed by Will Garcia MD in OV> 01/31/25 1241 DD/ 1147 TD/TT: 01/31/25 1200 Heading Repairer: Carmen Nagy DO IMG XR PROCEDURES Edited Res ult - Final documented in this encounter Visit Diagnoses Not on filedocumented in this encounter Care Teams Floor Mechanic Relationship Specialty Start Date End Date Ayesha Szymanski NP [address] [place] [address] PCP - General Family Medicine 01/21/25 documented as of this encounter
--- OUTSIDE RECORDS SUMMARY | 2025-01-31 15:11 | XMS_ITS | Clinical Summary ---
Author Organization [employer] Address 75 [facility] 7t [place] [address] Care Team Providers Care Paperboard Boxes Estimator Name Role Phone NessaAyesha GUEVARA Primary Care Provider [phone] Allergies No known active allergies Medications Blood Pressure kitIndication s:Elevated blood pressure reading 1 each 2 times daily. 1 kit 025 2025 Active psyllium (Metamucil Smooth Texture) 58.6 % powder Mix 1-2 tablespoonfuls in 8 oz of liquid and drink daily. 425 g 1 025 Active Senna-Time 8.6 MG tablet TAKE 1 TABLET (8.6 MG) BY MOUTH IF NEEDED AT BEDTIME FOR CONSTIPATION. 90 tablet Active acetaminophen (Tylenol 8 Hour) 650 MG ER tablet Take 1 tablet (650 mg) by mouth every 8 (eight) hours if needed for mild pain. Do not crush, chew, or split. 40 tablet 1 025 2024 Active baclofen (Lioresal) 10 MG tabletIndicat ions:Right inguinal pain Take 1 tablet (10 mg) by mouth if needed in the morning, at noon, and at bedtime for muscle spasms. 60 tablet 1 Active Diclofenac Sodium 1 % gel Apply 2 g topically if needed in the morning, at noon, in the evening, and at bedtime (pain). 150 g 3 Active naproxen (Naprosyn) 500 MG tablet Take 1 tablet (500 mg) by mouth if needed in the morning and at bedtime for mild pain. 30 tablet 1 025 2025 Active predniSONE (Deltasone) 20 MG tablet Take 1 tablet (20 mg) by mouth 2 times daily for 5 days. 10 tablet 025 2024 Active ibuprofen 600 MG tabletIndicat ions:Right inguinal pain Take 1 tablet (600 mg) by mouth every 6 (six) hours if needed for mild pain for up to 14 days. 46 tablet 025 2024 Discontinued baclofen (Lioresal) 10 MG tabletIndicat ions:Right inguinal pain Take one tablet TID PRN 30 tablet 025 2024 Discontinued(R eorder (will not trigger notification to Pharmacy)) senna (Senokot) 8.6 MG tablet Take 1 tablet (8.6 mg) by mouth if needed at bedtime for constipation. 30 tablet 025 2024 Discontinued naproxen (Naprosyn) 500 MG tablet Take 1 tablet (500 mg) by mouth if needed in the morning and at bedtime for mild pain. 30 tablet 1 025 2024 Discontinued(R eorder (will not trigger notification to Pharmacy)) acetaminophen (Tylenol 8 Hour) 650 MG ER tablet Take 1 tablet (650 mg) by mouth every 8 (eight) hours if needed for mild pain. Do not crush, chew, or split. 40 tablet 1 025 2024 Discontinued(R eorder (will not trigger notification to Pharmacy)) predniSONE (Deltasone) 20 MG tablet Take 1 tablet (20 mg) by mouth 2 times daily for 5 days. 10 tablet 025 2024 Discontinued(R eorder (will not trigger notification to Pharmacy)) Diclofenac Sodium 1 % gel Apply 2 g topically if needed in the morning, at noon, in the evening, and at bedtime (pain). 150 g 3 025 2024 Discontinued(R eorder (will not trigger notification to Pharmacy)) baclofen (Lioresal) 10 MG tabletIndicat ions:Right inguinal pain Take 1 tablet (10 mg) by mouth if needed in the morning, at noon, and at bedtime for muscle spasms. 60 tablet 1 025 2024 Discontinued(R eorder (will not trigger notification to Pharmacy)) Active Problems No known active problems Encounters Date Type Department Care Team Description 01/31/2025 10:20 AM EDT Office Visit [facility] [address] [place] [address] Right arm pain (Primary Dx); Pain of right thumb; Right inguinal pain 01/31/2025 Orders Only [facility] [address] [place] [address] Carmen Nagy DO 01/23/2025 Refill [facility] [address] [place] [address] Shantel Huffman NP 01/21/2025 10:40 AM EST Office Visit [facility] [address] [place] [address] Filippo Mello MD Blurry vision, bilateral (Primary Dx); Thumb injury, left, initial encounter 01/16/2025 Telephone [facility] [address] [place] [address] Sil Paris, JAMES Results 01/10/2025 2:20 PM EST Office Visit [facility] [address] [address] Right inguinal pain (Primary Dx); Lower abdominal pain; Elevated blood pressure reading 01/10/2025 Telephone [facility] [address] [address] Alma Islas, JAMES [facility] ED visit 12/23/23 from Last 3 Months Social History Tobacco Use Types Packs/Day Years Used Date Smoking Tobacco: Never Smokeless Tobacco: Never Tobacco Cessation:Counseling Given: Not Answered Alcohol Use Standard Drinks/Week Comments Yes 0 [...] Sign Reading Time Taken Comments Blood Pressure 134/93 01/31/2025 10:28 AM EDT Pulse 66 01/31/2025 10:28 AM EDT Temperature 36.3 ??C (97.3 ??F) 01/31/2025 10:28 AM E DT Respiratory Rate 17 01/31/2025 10:28 AM EDT Oxygen Saturation 97% 01/31/2025 11:59 AM EDT Inhaled Oxygen Concentration - - Weight 84.2 kg (185 lb 9.6 oz) 01/31/2025 10:28 AM EDT Height - - Body Mass Index - - Plan of Treatment Upcoming Encounters Date Type Department Care Team (Late st Contact Info) Description 02/25/2025 3:45 PM EDT Office Visit [facility] [address] [place] [address] Ayesha Szymanski NP [address] [place] [address] Health Maintenance Due Date Last Done Comments CT Colonography 1970 Colonoscopy 1971 Colorectal Cancer Screening 1970 Depression Screening 1971 FIT DNA/Cologuard 1971 FIT 1971 FOBT 1970 HIV Screening 1970 Lipid Panel 1971 SDOH Screening 1971 Sigmoidoscopy 1971 Alcohol/Substance Use Screening 1983 Hepatitis C Screening 1989 DTaP/Tdap/Td Vaccines (1 - Tdap) 1990 Hepatitis B Vaccines (1 of 3 - 19+ 3-dose series) 1990 Pneumococcal Vaccine: 50+ Ye ars (1 of 1 - PCV) 2021 Zoster Vaccines (1 of 2) 2021 COVID-19 Vaccine (1 - 2023-2 5 season) 2024 Influenza Vaccine (#1) 2024 Tobacco Screening 01/21/2026 01/21/2025 RSV Patients and Pa tients Aged 60 [...] SPINE 3V Routine 01/31/2025 11:47 AM EDT XR HAND 3+ VIEWS RIGHT Routine 01/31/2025 11:47 AM EDT Pain of right thumb XR KUB AND UPRIGHT 2 VIEWS Routine 01/16/2025 12:07 PM EST Lower abdominal pain from Last 3 Months Results * XR CERVICAL SPINE 3V (01/31/2025 11:47 AM EDT) Anatomical Region Laterality Modality Abdomen Radiographic Denise ging 01/31/2025 11:4 7 AM EDT Narrative 01/31/2025 12:44 PM EDT ?[facility] ?[address] ?[place] [address] ?XRay Report ? Signed ? Patient: Filippo Santiago ?MR#: [id number] ?? 795 ? : 1970 ?Acct:[id number] ? Age/Sex: 54 / M ?ADM Date: 01/31/25 ? Loc: HO.HHCX ? Attending Dr: Carmen Nagy DO ? Ordering Physician: Carmen Nagy DO ?? Date of Service: 01/31/25 ?? Procedure(s): XR cervical spine 3V ?? Accession Number(s): [id number] ? cc: Carmen Nagy DO ? EXAMINATION: [...] DD/ 1147 ? TD/TT: 01/31/25 1200 ? Hostler Helper: ? Procedure Note Morris, Image - 01/31/[address] [address] XRay Report Signed Patient: Filippo SantiagoMR#: [id number] 795 : 1970Acct:[id number] Age/Sex: 54 / MADM Date: 01/31/25 Loc: HO.HHCX Attending Dr: Carmen Nagy DO Ordering Physician: Carmen Nagy DO Date of Service: 01/31/25 Procedure(s): XR cervical spine 3V Accession Number(s): [id number] cc: Carmen Nagy DO EXAMINATION: XR CERVICAL [...] 01/31/25 1241 DD/ 1147 TD/TT: 01/31/25 1200 Hostler Helper: us Carmen Nagy DO IMG XR PROCEDURES Edited Res ult - Final * XR Hand 3+ Views Right (01/31/2025 11:47 AM EDT) Anatomical Region Laterality Modality Upper Extremities, Hand Right Radiogra phic Imaging 01/31/2025 11:4 7 AM EDT Narrative 01/31/2025 12:47 PM EDT ?[facility] ?[address] ?[place] [address] ?XRay Report ? Signed ? Patient: Louijean,Filippo ?MR#: [id number] ?? 795 ? : 1970 ?Acct:[id number] ? Age/Sex: 54 / M ?ADM Date: 01/31/25 ? Loc: HO.HHCX ? Attending Dr: Carmen Nagy DO ? Ordering Physician: Carmen Nagy DO ?? Date of Service: 01/31/25 ?? Procedure(s): XR hand RT min 3V ?? Accession Number(s): [id number] ? cc: Carmen Nagy DO ? EXAMINATION: ?? XR HAND, RIGHT ? CLINICAL INFORMATION: ?? R thumb pain and swelling ? COMPARISON: ?? None available. ? TECHNIQUE: ?? PA, lateral, and oblique views of the right hand. ? FINDINGS: ?? The bones and soft tissues are normal. No fracture. Alignment is ?? anatomic. Joint spaces are maintained. No erosions or soft tissue ?? calcifications. ? XR/XR hand RT min 3V ?? IMPRESSION: ?? Normal right hand. ? Electronically signed by: ??Will Garcia MD ??01/31/2025 12:45 PM EDT RP ? Dictated By: ?Will Garcia MD ? Signed By: ?<Electronically signed by Will Garcia MD in OV> ?01/31/25 1245 ? DD/ 1147 ? TD/TT: 01/31/25 1200 ? Hostler Helper: ? Procedure Note Donnahidter, Image - 01/31/2025 [facility] [address] [place] [address] XRay Report Signed Patient: Filippo SantiagoMR#: [id number] 795 : 1970Acct:[id number] Age/Sex: 54 / MADM Date: 01/31/25 Loc: .HHCX Attending Dr: Carmen Nagy DO Ordering Physician: Carmen Nagy DO Date of Service: 01/31/25 Procedure(s): XR hand RT min 3V Accession Number(s): [id number] cc: Carmen Nagy DO EXAMINATION: XR HAND, RIGHT CLINICAL INFORMATION: R thumb pain and swelling COMPARISON: None available. TECHNIQUE: PA, lateral, and oblique views of the right hand. FINDINGS: The bones and soft tissues are normal. No fracture. Alignment is anatomic. Joint spaces are maintained. No erosions or soft tissue calcifications. XR/XR hand RT min 3V IMPRESSION: Normal right hand. Electronically signed by: Will Garcia MD 01/31/2025 12:45 PM EDT Dictated By: Will Garcia MD Signed By: <Electronically signed by Will Garcia MD in OV> 01/31/25 1245 DD/ 1147 TD/TT: 01/31/25 1200 Hostler Helper: Carmen Nagy DO IMG XR PROCEDURES Edited Res ult - Final * XR KUB and Upright 2 Views (01/16/2025 12:07 PM EST) Anatomical Region Laterality Modality Radiographic Denise ging 01/16/2025 12:0 7 PM EST Narrative 01/16/2025 1:45 PM EST ?[facility] ?[address] ?[place] [address] ?XRay Report ? Signed ? Patient: Louijean,Filippo ?MR#: [id number] ?? 795 ? : 1970 ?Acct:[id number] ? Age/Sex: 54 / M ?ADM Date: 01/16/25 ? Loc: HO.HHCX ? Attending Dr: Shantel Huffman ? Ordering Physician: Shantle Huffman ?? Date of Service: 01/16/25 ?? Procedure(s): XR KUB ?? Accession Number(s): [id number] ? cc: Shantel Huffman ? EXAMINATION: ??XR [...] DD/ 1207 ? TD/TT: 01/16/25 1300 ? Hostler Helper: ? Procedure Note Darcy Caceres - 01/16/[address] [address] XRay Report Signed Patient: Filippo SantiagoMR#: [id number] 795 : 1970Acct:[id number] Age/Sex: 54 / MADM Date: 01/16/25 Loc: HO.HHCX Attending Dr: Shantel Huffman Ordering Physician: Shantel Huffman Date of Service: 01/16/25 Procedure(s): XR KUB Accession Number(s): [id number] cc: Shantel Huffman EXAMINATION: XR ABDOMEN 1 [...] 01/16/25 1342 DD/ 1207 TD/TT: 01/16/25 1300 Hostler Helper: Shantel Huffman INDUSTRIAL SALES REPRESENTATIVE IMG XR PROCEDURES Final Result from Last 3 Months [facility] Care Teams Paperboard Boxes Estimator Relationship Specialty Start Date End Date Ayesha Szymanski NP [address] [place] [address] PCP - General Family Medicine 01/21/25
--- OUTSIDE RECORDS SUMMARY | 2025-01-31 15:11 | XMS_ITS | Encounter Summary ---
Author Organization [employer] Address 75 [facility] 7t [place] [address] Care Team Providers Care Exposure Machine Operator Name Role Phone Unavailable Primary Care Provider Unavailabl e Reason for Visit * Reason Comments Abdominal Pain Encounter Details Date Type Department Care Team (Late Contact Info) Description 01/10/2025 2:20 PM EST Office Visit [facility] [address] [place] [phone] Right inguinal pain (Primary Dx); Lower abdominal [...] Upcoming Encounters Date Type Department Care Team ([facility] Contact Info) Description 02/25/2025 3:45 PM EDT Office Visit [facility] [address] [place] [address] Ayesha Szymanski NP [address] [place] [address] documented as of this encounter Procedures Procedure Name Priority Date/Time Associated Diagnosis Comments XR KUB AND UPRIGHT 2 VIEWS Routine 01/16/2025 12:07 PM EST Lower abdominal pain documented in this encounter Results * XR KUB and Upright 2 Views (01/16/2025 12:07 PM EST) Anatomical Region Laterality Modality Radiographic Denise ging 01/16/2025 12:0 7 PM EST Narrative 01/16/2025 1:45 PM EST ?[facility] ?[address] ?[place] [address] ?XRay Report ? Signed ? Patient: Filippo Santiago ?MR#: [id number] ?? 795 ? : 1970 ?Acct:[id number] ? Age/Sex: 54 / M ?ADM Date: 01/16/25 ? Loc: HO.HHCX ? Attending Dr: Shantel Huffman ? Ordering Physician: Shantel Huffman ?? Date of Service: 01/16/25 ?? Procedure(s): XR KUB ?? Accession Number(s): [id number] ? cc: Shantel Huffman ? EXAMINATION: ??XR [...] DD/ 1207 ? TD/TT: 01/16/25 1300 ? Director Of Operations Support: ? Procedure Note Morris, Image - 01/16/2025 [facility] [address] [place] [address] XRay Report Signed Patient: Filippo SantiagoMR#: [id number] 795 : 1970Acct:[id number] Age/Sex: 54 / MADM Date: 01/16/25 Loc: HO.HHCX Attending Dr: Shantel Huffman Ordering Physician: Shantel Huffman Date of Service: 01/16/25 Procedure(s): XR KUB Accession Number(s): [id number] cc: Shantel Huffman EXAMINATION: XR ABDOMEN 1 [...] throughout the colon. Electronically signed by: Johnathon Pdaron MD 01/16/2025 01:42 PM [facility] Dictated By: Johnathon Padron MD Signed By: <Electronically signed by Johnathon Padron MD in OV> 01/16/25 1342 DD/ 1207 TD/TT: 01/16/25 1300 Director Of Operations Support: Shantel Huffman RESEARCH GEOLOGIST IMG XR PROCEDURES Final Result documented in this encounter Visit Diagnoses Diagnosis Right inguinal pain- Primary Abdominal pain, right lower quadrant Lower abdominal pain Abdominal pain, other specified site Elevated blood pressure reading Elevated blood pressure reading without diagnosis of hypertension documented in this encounter
--- OUTSIDE RECORDS SUMMARY | 2025-01-31 15:11 | XMS_ITS | Encounter Summary ---
Author Organization [employer] Address 75 [facility] 7t [place] [address] Care Team Providers Care Business Continuity Coordinator Name Role Phone Ayesha Szymanski GUEVARA Primary Care Provider [phone] Reason for Referral * Neurology (Routine) - Authorized Specialty Diagnoses / Procedures Referred By Contac t Referred To Contact Diagnoses Right arm pain Procedures Nerve conduction test Carmen Nagy DO [address] [place] [address] Phone: tel: fax: [address] Phone: tel: fax: Referral ID Status Reason Start Date Expiration Date V isits Requested Visits Authorized [id number] Authorized 01/31/2025 01/31/2026 1 1 * Neurology (Routine) - Authorized Specialty Diagnoses / Procedures Referred By Contac t Referred To Contact Diagnoses Right arm pain Procedures EMG Carmen Nagy DO [address] [place] [address] Phone: tel: fax: [address] Phone: tel: fax: Referral ID Status Reason Start Date Expiration Date V isits Requested Visits Authorized [id number] Authorized 01/31/2025 01/31/2026 1 1 Reason for Visit * Reason Comments Arm Pain Encounter Details Date Type Department Care Team (Late st Contact Info) Description 01/31/2025 10:20 AM EDT Office Visit [facility] [address] [place] [phone] Right arm pain (Primary Dx); Pain of right thumb; Right inguinal pain Social History Tobacco Use Types Packs/Day Years [...] Description 02/25/2025 3:45 PM EDT Office Visit [facility] [address] [place] [address] Ayesha Szymanski NP [address] [place] [address] Scheduled Orders Name Type Priority Associated Diagnoses Orde r Schedule XR Cervical Spine 2-3 Views Imaging Routine Right arm pain Expected: 01/31/2025, Expires: 01/31/2026 EMG Neurology Routine Right arm pain Expected: 01/31/2025 (Approximate), Expires: 01/31/2026 Nerve conduction test Neurology Routine Right arm pain Expected: 01/31/2025 (Approximate), Expires: 01/31/2026 documented as of this encounter Procedures Procedure Name Priority Date/Time Associated Diagnosis Comments XR HAND 3+ VIEWS RIGHT Routine 01/31/2025 11:47 AM EDT Pain of right thumb documented in this encounter Results * XR Hand 3+ Views Right (01/31/2025 11:47 AM EDT) Anatomical Region Laterality Modality Upper Extremities, Hand Right Radiogra phic Imaging 01/31/2025 11:4 7 AM EDT Narrative 01/31/2025 12:47 PM EDT ?[facility] ?[address] ?[place] [address] ?XRay Report ? Signed ? Patient: Filippo Santiago ?MR#: [id number] ?? 795 ? : 1970 ?Acct:[id number] ? Age/Sex: 54 / M ?ADM Date: 01/31/25 ? Loc: HO.HHCX ? Attending Dr: Carmen Nagy DO ? Ordering Physician: Carmen Nagy DO ?? Date of Service: 01/31/25 ?? Procedure(s): XR hand RT min 3V ?? Accession Number(s): [id number] ? cc: Carmen Nagy DO ? EXAMINATION: [...] DD/ 1147 ? TD/TT: 01/31/25 1200 ? Patient Service Associate: ? Procedure Note Morris, Darcy - 01/31/2025 [facility] [address] [place] [address] XRay Report Signed Patient: Filippo SantiagoMR#: [id number] 795 : 1970Acct:[id number] Age/Sex: 54 / MADM Date: 01/31/25 Loc: .HHX Attending Dr: Carmen Nagy DO Ordering Physician: Carmen Nagy DO Date of Service: 01/31/25 Procedure(s): XR hand RT min 3V Accession Number(s): [id number] cc: Carmen Nagy DO EXAMINATION: XR HAND, [...] 01/31/25 1245 DD/ 1147 TD/TT: 01/31/25 1200 Patient Service Associate: Carmen Nagy DO IMG XR PROCEDURES Edited Res ult - Final documented in this encounter Visit Diagnoses Diagnosis Right arm pain- Primary Pain in soft tissues of limb Pain of right thumb Right inguinal pain Abdominal pain, right lower quadrant documented in this encounter Care Teams Business Continuity Coordinator Relationship Specialty Start Date End Date Ayesha Szymanski NP [address] [place] [address] PCP - General Family Medicine 01/21/25 documented as of this encounter
--- OUTSIDE RECORDS SUMMARY | 2025-01-31 15:11 | XMS_ITS | Encounter Summary ---
Author Organization [employer] Address [address] [facility] [address] [place] [address] Care Team Providers Care Dance Artist Name Role Phone Ayesha Szymanski GUEVARA Primary Care Provider [phone] Reason for Referral * Consultation (Routine) - Authorized Specialty Diagnoses / Procedures Referred By Manuel núñez Referred To Contact Optometry Diagnoses Blurry vision, bilateral Filippo Mello MD [address] [place] [address] Phone: tel: fax: [facility] [address] [place] [address] Phone: tel: fax: Referral ID Status Reason Start Date Expiration Date Visits Requested Visits Authorized [id number] Authorized Consult and Treat 01/21/2025 01/21/2026 1 1 * Consultation (Routine) - Authorized Specialty Diagnoses / Procedures Referred By Manuel núñez Referred To Contact Hand Surgery Diagnoses Thumb injury, left, initial encounter Filippo Mello MD [address] [place] [address] Phone: tel: fax: [facility] [address] [place] [address] Phone: tel: Referral ID Status Reason Start Date Expiration Date Visits Requested Visits Authorized [id number] Authorized Specialty Services Required 01/21/2025 01/21/2026 6 6 Reason for Visit * Reason Comments itchy eyes Encounter Details Date Type Department Care Team (Late st Contact Info) Description 01/21/2025 10:40 AM EST Office Visit [facility] [address] [place] [address] Filippo Mello MD [address] [place] [address] Blurry vision, bilateral (Primary Dx); Thumb injury, left, initial encounter Social History Tobacco Use Types Packs/Day Years [...] Sign Reading Time Taken Comments Blood Pressure 132/76 01/21/2025 10:42 AM EST Pulse 67 01/21/2025 10:42 AM EST Temperature 36.4 ??C (97.5 ??F) 01/21/2025 10:[address] Respiratory Rate 17 01/21/2025 10:42 AM EST Oxygen Saturation 95% 01/21/2025 10:42 AM EST Inhaled Oxygen Concentration - - Weight 83.9 kg (185 lb) 01/21/2025 10:42 AM EST Height - - Body Mass Index - - documented in this encounter Progress Notes * Filippo Mello MD - 01/21/2025 10:40 AM EST Subjective Patient ID: Filippo Santiago is a 54 y.o. male. Hourly Caregiver: Azul Reilly. HPI Filippo states that the eyeglasses that were prescribed in [place] several years ago are no longer helping with blurry vision when he reads. States that when he tries to read with the glasses, he has clear tears. Has little difficulty with distance vision. No eye pain, redness, eyelid matting, photosensitivity. 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 Past med hx: neg Past surgical hx: neg Lives with and 2 children. Not employed Never Smoked. Occasional EtOH. No Illicit substances. The following portions of the chart were reviewed this encounter and updated as appropriate: Review of Systems Constitutional: Negative for fever. Eyes: Positive for visual disturbance. Respiratory: Negative for shortness of breath. Cardiovascular: Negative for chest pain. Gastrointestinal: Negative for abdominal pain. Skin: Negative for rash. Neurological: Negative for headaches. Objective Physical Exam Vitals and nursing note reviewed. Constitutional: Appearance: Normal appearance. HENT: Head: Normocephalic and atraumatic. Nose: Nose normal. Eyes: Extraocular Movements: Extraocular movements intact. Conjunctiva/sclera: Conjunctivae normal. Pupils: Pupils are equal, round, and reactive to light. Pulmonary: Effort: Pulmonary effort is normal. Musculoskeletal: Comments: Right thumb: Unable to passively extend thumb at MCP joint. There is a small healed scar overlying the extensor surface of the first metacarpal proximal to theMCP joint. Skin: General: Skin is warm and dry. Neurological: Mental Status: He is alert. Gait: Gait is intact. Psychiatric: Mood and Affect: Mood and affect normal. Behavior: Behavior normal. Procedures Assessment/Plan Diagnoses and all orders for this visit: Blurry vision, bilateral Referred to [facility] vision center. Thumb injury, left, initial encounter Presumptive transection of thumb extensor tendon(s). Referred to hand surgery documented in this encounter Plan of Treatment Upcoming Encounters Date Type Department Care Team (Late st Contact Info) Description 02/25/2025 3:45 PM EDT Office Visit [facility] [address] [place] [address] Ayesha Szymanski NP [address] [place] [address] Scheduled Referrals Name Type Priority Associated Diagnoses Orde r Schedule Referral to Hand Surgery Outpatient Referral Routine Thumb injury, left, initial encounter Expected: 01/21/2025 (Approximate), Expires: 01/21/2026 Referral to [facility] Outpatient Referral Routine Blurry vision, bilateral Expected: 01/21/2025 (Approximate), Expires: 01/21/2026 documented as of this encounter Visit Diagnoses Diagnosis Blurry vision, bilateral- Primary Other specified visual disturbances Thumb injury, left, initial encounter documented in this encounter Care Teams Dance Artist Relationship Specialty Start Date End Date Ayesha Szymanski NP [address] [place] [address] PCP - General Family Medicine 01/21/25 documented as of this encounter
--- OUTSIDE RECORDS SUMMARY | 2025-01-31 15:11 | XMS_ITS | Encounter Summary ---
Author Organization [employer] Address [address] [facility] [address] [place] [address] Care Team Providers Care Management Analyst Name Role Phone Unavailable Primary Care Provider Unavailabl e Reason for Visit * Reason Onset Date Comments [facility] [place] 12/23/23 01/10/2025 Encounter Details Date Type Department Care Team (Late st Contact Info) Description 01/10/2025 Telephone [facility] [address] [place] [address] Alma Islas RN [facility] [place] 12/23/23 Social History Tobacco Use [...] Islas RN - 01/10/2025 1:38 PM EST [facility] 12/23/23 visit: Emergency Department Note Signed Patient: Filippo Santiago MR#: [id number] : 1970 Acct:[id number] Age/Sex: 54 / M ADM Date: 12/23/24 [facility] [address] [address] Electrocardiograph Report Signed Patient: Filippo Santiago MR#: [id number] : 1970 Acct:[id number] Age/Sex: 54 / M ADM Date: 12/23/24 [facility]: Ordering Physician: Yana Waters MD Date of Service: 12/23/24 Procedure(s): ECG 12 lead EKG Accession Number(s): [id number] cc: Yana Waters MD~ Test Reason : [...] by Provider: 12/23/24 08:45 Source: patient and motor vehicle parts interpreter (Ivorian Creole) Mode of arrival: ambulatory Limitations: no limitations History of Present Illness ED Provider: DR. Waters HPI narrative: 54-year-old male Ivorian Creole speaking only presented with 3 days [...] as documented and Reports Abnormal speech present [facility] Social History Social History Advance [...] Lymph % (Auto) 45.4 H (20-40) % [place] % (Auto) 9.8 (2-11) % Eos % (Auto) 0.4 (0-4) % Baso % (Auto) 0.8 (0-2) % Lymph # (Auto) 2.4 (1.2-4.9) X10*3/uL [place]con # (Auto) 0.5 (0.1-1.2) X10*3/uL Eos # [...] Clear Urine pH 6.0 (5.0-9.0) Ur Specific [place] 1.020 (1.005-1.025) Urine Protein Negative (Neg-Trace) mg/dL [...] Additional Instructions: take ibuprofen 200 mg tablet ([id number]) every 6 hours if needed for pain. Referrals: Johnnie Nam MD [Primary Care Provider] - Print Language: Ivorian Creole Dictated By: Yana Waters MD Signed By: <Electronically signed by Yana Waters MD> 12/23/24 [address] [place] [address] CT Scan Report Signed Patient: Filippo Santiago MR#: [id number] : 1970 Acct:[id number] Age/Sex: 54 / M ADM Date: 12/23/24 Loc: [facility] Attending Dr: Ordering Physician: Yana Waters MD Date of Service: 12/23/24 Procedure(s): CT abdomen pelvis wo IV con Accession Number(s): [id number] cc: Yana Waters MD; Johnnie Nam MD~ Report Number: [id number]: Total DLP = 488.00 mGy-cm CLINICAL HISTORY: [...] Description 02/25/2025 3:45 PM EDT Office Visit [facility] [address] [place] [address] Ayesha Szymanski NP [address] [place] [address] documented as of this encounter Visit Diagnoses Not on filedocumented in this encounter
== END 2025-01-31 11:46 | disposition home or self-care (01) ==
LOC: HO.HHCX 11:45
PROVIDERS: Visit Provider Family Medicine
DX: M79.601 Pain in right arm (principal); M79.644 Pain in right finger(s); R20.0 Anesthesia of skin
CPT/HCPCS: 72040; 73130

== ENCOUNTER → 2025-01-31 11:47 | Outpatient (BNV) | payer OTHER, SELFPAY | PROVIDERS: Visit Provider Radiology Diagnostic Radiology | DX: M79.644 Pain in right finger(s) (principal); M54.2 Cervicalgia | CPT/HCPCS: 72040; 73130 ==

== ENCOUNTER 2025-06-14 15:03 | Outpatient (REF) | payer MEDICAID, SELFPAY ==
--- NOTE | ~2025-06-14 | XR_ITS ---
EXAMINATION: XR HIP, RIGHT CLINICAL INFORMATION: right hip pain chronic after fall COMPARISON: None available. TECHNIQUE: AP and oblique views of the right hip. FINDINGS: No acute cortical disruption or malalignment. No lytic or blastic lesions. There is preservation with the joint space. XR/XR hip RT min 2V IMPRESSION: Normal x-ray, right hip. Electronically signed by: Harish Lucia MD 06/14/2025 03:42 PM EDT
--- OUTSIDE RECORDS SUMMARY | 2025-06-14 15:06 | XMS_ITS | Clinical Summary ---
Author Organization [employer] Address [address] [facility] [address] [place] [address] Care Team Providers Care Hospital Librarian Name Role Phone AsadAyesha garcia GUEVARA Primary Care Provider [phone] Allergies No known active allergies Medications Blood Pressure kitIndications :Elevated blood pressure reading 1 each 2 times daily. 1 kit 5 026 Active psyllium (Metamucil Smooth Texture) 58.6 % powder Mix 1-2 tablespoonfuls in 8 oz of liquid and drink daily. 425 g 1 5 Active Senna-Time 8.6 MG tablet TAKE 1 TABLET (8.6 MG) BY MOUTH IF NEEDED AT BEDTIME FOR CONSTIPATION. 90 tablet 5 Active baclofen (Lioresal) 10 MG tabletIndicati ons:Right inguinal pain Take 1 tablet (10 mg) by mouth if needed in the morning, at noon, and at bedtime for muscle spasms. 60 tablet 1 5 Active Diclofenac Sodium 1 % gel Apply 2 g topically if needed in the morning, at noon, in the evening, and at bedtime (pain). 150 g 3 5 Active naproxen (Naprosyn) 500 MG tablet Take 1 tablet (500 mg) by mouth if needed in the morning and at bedtime for mild pain. 30 tablet 1 5 026 Active Active Problems Problem Noted Date Diagnosed Date Right inguinal pain 06/14/2025 Assessment & Plan (06/14/2025 2:37 PM EDT): Us for bulge in groin, Referral to physical therpay, if both images neg, will refer to ortho pain with standing flexion and extension Right hand pain 06/14/2025 Overview (06/14/2025): PA, lateral, and oblique views of the right hand. FINDINGS: The bones and soft tissues are normal. No fracture. Alignment is anatomic. Joint spaces are maintained. No erosions or soft tissue calcifications. XR/XR hand RT min 3V IMPRESSION: Normal right hand. Assessment & Plan (06/14/2025 2:36 PM EDT): Chronic issue, referral to ortho Pain of right thumb 03/22/2025 Assessment & Plan (04/13/2025 12:34 PM EDT): Referral to ortho Tooth pain 03/22/2025 Resolved Problems Problem Noted Date Diagnosed Date Resolved Date Blurry vision, bilateral 03/22/202506/2025 Encounters Date Type Department Care Team Description 06/14/2025 2:30 PM EDT Office Visit [facility] [address] [place] [address] Ayesha Szymanski NP Right inguinal pain (Primary Dx); Right hand pain 06/14/2025 Travel 06/13/2025 Telephone [facility] [address] [place] [address] Melissa Whitten MA CHARTPREP 05/28/2025 10:30 AM EDT Office Visit [facility] [address] [place] [address] Tarka, Michelle, OD Normal eye exam (Primary Dx); Hypermetropia, bilateral 05/28/2025 Travel 05/21/2025 Telephone [facility] [address] [place] [address] Vesna Bullock MA r/s appointment 05/08/2025 Telephone [facility] [address] [place] [address] Ayesha Szymanski NP Nurse Triage 03/22/2025 3:30 PM EDT Office Visit [address] [address] Ayesha Szymanski NP Pain of right thumb (Primary Dx); Blurry vision, bilateral; Tooth pain 03/22/2025 Travel 03/20/2025 Telephone [facility] [address] [place] [address] Vesna Bullock MA Chart Prep from Last 3 Months Social History Tobacco Use Types Packs/Day Years Used Date Smoking Tobacco: Never Smokeless Tobacco: Never Tobacco Cessation:Counseling Given: Not Answered Alcohol Use Standard Drinks/Week Comments Yes 0 (1 standard drink = 0.6 oz pur e alcohol) Depression Answer Date Recorded Patient Health Questionnaire-9 Score 3 03/22/2025 Patient Health Questionnaire-9 Score 3 03/22/2025 Last PHQ-9: Questionnaire Data Not on file 0 03/22/2025 Housing Stability Answer Date Recorded What is your housing situation today? I do not have housing (Staying with others, in a hotel, in a detention, living outside on the street, on a beach, in a car, or in a park 03/22/[address] you li ve. Do you have problems with any of the following? Pests such as bugs, ants, or mice 03/22/2025 Food Insecurity Answer Date Recorded Within the past 12 months, y ou worried that your food would run out before you got money to buy more: Often true 03/22/2025 Within the past 12 months,th e food you bought just didn't last and you didn't have enough money to get more: Often true 12/2024 Transportation Answer Date Recorded In the past 12 months, has l ack of transportation kept you from medical appts, meetings, work or from getting things needed for daily living? Yes, it has kept me from medical appointments or getting medications. 03/22/2025 Utilities Answer Date Recorded In the past 12 months, has t he electric, gas, oil or water company threatened to shut off services in your home? No 03/22/2025 Depression Answer Date Recorded Patient Health Questionnaire-2 Score 0 03/22/2025 Internet Access Answer Date Recorded Internet Access Q1 Yes 03/22/2025 Internet Access Q2 Not on file 03/22/2025 Sex and Gender Information Value Date Recorded Sex Assigned at Male 01/10/2025 1:31 PM EST Legal Sex Male 1:02 PM EST Gender Identity Male 01/10/2025 1:31 PM EST Sexual Orientation Straight 01/10/2025 1: 31 PM EST Last Filed Vital Signs Vital Sign Reading Time Taken Comments Blood Pressure 106/78 06/14/2025 2:21 PM EDT Pulse 61 06/14/2025 2:21 PM EDT Temperature 36.2 C (97.2 F) 06/14/2025 2:21 PM EDT Respiratory Rate 20 06/14/2025 2:21 PM EDT Oxygen Saturation 97% 06/14/2025 2:21 PM EDT Inhaled Oxygen Concentration - - Weight 80.6 kg (177 lb 9.6 oz) 06/14/2025 2:21 P M EDT Height - - Body Mass Index - - Plan of Treatment Upcoming Encounters Date Type Department Care Team (Late st Contact Info) Description 08/07/2025 10:15 AM EDT Office Visit [facility] [address] [place], [place] [phone] Ayesha Szymanski NP [address] [place], [place] [phone] Health Maintenance Due Date Last Done Comments CT Colonography 1970 Colonoscopy 1970 Colorectal Cancer Screening 1970 FIT DNA/Cologuard 1970 FIT 1970 FOBT 1970 HIV Screening 1970 Lipid Panel 1970 Sigmoidoscopy 1971 Alcohol/Substance Use Screening 1983 Hepatitis C Screening 1989 DTaP/Tdap/Td Vaccines (1 - Tdap) 1990 Hepatitis B Vaccines (1 of 3 - 19+ 3-dose series) 1990 Pneumococcal Vaccine: 50+ Years (1 of 1 - PCV) 2021 Zoster Vaccines (1 of 2) 2021 COVID-19 Vaccine ( - 2023-2 5 season) 2024 Influenza Vaccine (#1) 2025 Depression Screening 03/22/2026 03/22/2025, 03/22/2025 Disability Screening 03/22/2026 03/22/2025 SDOH Screening 03/22/2026 03/22/2025 Tobacco Screening 05/28/2026 05/28/2025 RSV Patients and Patients Aged 60 years or older (1 - [...] patient's age to complete this topic Meningococcal B Vaccine Aged Out No l onger eligible based on patient's age to complete this topic Meningococcal Vaccine Aged Out No cash anali eligible based on patient's age to complete this topic RSV under 20 months Aged Out No longe r eligible based on patient's age to complete this topic Rotavirus Vaccines Aged Out No longer eligible based on patient's age to complete this topic Insurance [facility] C3 Care Teams Hospital Librarian Relationship Specialty Start Date End Date Ayesha Szymanski NP [address] [place] [id number] PCP - General Family Medicine 01/21/25
== END 2025-06-14 15:04 | disposition home or self-care (01) ==
LOC: HO.HHCX 15:03
PROVIDERS: Visit Provider Nurse Practitioner Family
DX: M25.551 Pain in right hip (principal); R10.31 Right lower quadrant pain; G89.29 Other chronic pain
CPT/HCPCS: 73502

== ENCOUNTER → 2025-06-14 15:04 | Outpatient (BNV) | payer MEDICAID, SELFPAY | PROVIDERS: Visit Provider Radiology Diagnostic Radiology | DX: M25.551 Pain in right hip (principal) | CPT/HCPCS: 73502 ==

== ENCOUNTER 2025-07-31 09:07 | Outpatient (REF) | payer MEDICAID, SELFPAY ==
--- NOTE | ~2025-07-31 | XR_ITS ---
EXAMINATION: XR HAND, RIGHT CLINICAL INFORMATION: M79.642 - Pain in right hand COMPARISON: None available. TECHNIQUE: PA, lateral, and oblique views of the right hand. FINDINGS: Mild osteophyte formation is noted in the margins of the IP and MCP joint of the thumb, third MCP joint, and second DIP joint. Joint spaces are preserved. There is decreased bone mineral density. No fractures are evident. XR/XR hand RT min 3V IMPRESSION: Mild degenerative changes. Electronically signed by: Fantasma Kellogg MD 07/31/2025 11:43 AM EDT
--- OUTSIDE RECORDS SUMMARY | 2025-07-31 10:47 | XMS_ITS | Clinical Summary ---
Author Organization [employer] Address [address] [facility] 7t [place] [address] Care Team Providers Care Family Life Counselor Name Role Phone AsadAyesha garcia GUEVARA Primary Care Provider [phone] Allergies No known active allergies Medications Blood Pressure kitIndications: Elevated blood pressure reading 1 each 2 times daily. 1 kit 025 2025 Active psyllium (Metamucil Smooth Texture) 58.6 % powder Mix 1-2 tablespoonfuls in 8 oz of liquid and drink daily. 425 g 1 025 Active Senna-Time 8.6 MG tablet TAKE 1 TABLET (8.6 MG) BY MOUTH IF NEEDED AT BEDTIME FOR CONSTIPATION. 90 tablet 025 Active naproxen (Naprosyn) 500 MG tablet Take 1 tablet (500 mg) by mouth if needed in the morning and at bedtime for mild pain. 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 60 tablet 2 025 Active Diclofenac Sodium 1 % gel Apply 2 g topically if needed in the morning, at noon, in the evening, and at bedtime (pain). 150 g 3 025 Active simethicone (Mylicon,Gas-X) 180 MG capsuleIndicati ons:Bloating Take 1 capsule (180 mg) by mouth every 8 (eight) hours if needed for flatulence. 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 14 tablet 025 2024 amoxicillin-cla vulanate (Augmentin) 875-125 MG tabletIndicatio ns:Acute otitis media, unspecified otitis media type Take 1 tablet by mouth 2 times daily for 7 days. 14 tablet 025 2024 Discontinued cyclobenzaprine (Flexeril) 5 MG tabletIndicatio ns:Pain of right shoulder region,Neck pain Take 1 tablet (5 mg) by mouth at bedtime for 15 days. 15 tablet 025 2024 ibuprofen 800 MG tabletIndicatio ns:Pain of right shoulder region,Neck pain Take 1 tablet (800 mg) by mouth every 8 (eight) hours if needed for moderate pain for up to 10 days. 30 tablet 025 2024 amoxicillin-cla vulanate (Augmentin) 875-125 MG tabletIndicatio ns:Acute otitis media, unspecified otitis media type Take 1 tablet by mouth 2 times daily for 7 days. 14 tablet 025 2024 Discontinued(R eorder (will not trigger notification to Pharmacy)) Active Problems Problem Noted Date Diagnosed Date Neck pain 07/09/2025 Assessment & Plan (07/09/2025 1:12 PM EDT): I advise to apply heat on affected area I prescribed ibuprofen 800 mg every 8 hours with full stomach if needed I prescribed Flexeril 5 mg at bedtime patient is aware of side effects somnolence, he is aware he cannot drive or do activities that require his concentration while he is taking this medication Acute otitis media 07/09/2025 Assessment & Plan (07/09/2025 1:09 PM EDT): Augmentin BID for 7 days ENT referral in light of recurrent infection Lymphadenopathy of head and neck 07/09/2025 Bloating 07/09/2025 Assessment & Plan (07/09/2025 1:11 PM EDT): Simethicone prescribed today to be taken PRN 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 Pain of right shoulder region 07/01/2025 Assessment & Plan (07/09/2025 1:13 PM EDT): Advised gentle stretching apply heat on affected area ibuprofen and Flexeril prescribed Assessment & Plan (07/01/2025 2:00 PM EDT): With trapezius muscle spasm. Recommend that he stretch and massage the area. Take Flexeril 5mg nightly for up to 15 nights as well Right inguinal pain 06/14/2025 Assessment & Plan [...] Encounters Date Type Department Care Team Description 07/09/2025 10:20 AM EDT Office Visit [facility] [address] [place] [phone] Sherly Voss MD Bloating (Primary Dx); Pain of right shoulder region; Neck pain; Acute otitis media, unspecified otitis media type; Lymphadenopathy of head and neck 07/09/2025 Refill [facility] [address] [place], [place] [phone] Ayesha Szymanski NP Acute otitis media, unspecified otitis media type 07/09/2025 Travel 07/01/2025 Outside Procedure [facility] [address] [place] [address] Emma Charles, OD Presbyopia (Primary Dx) 06/28/2025 1:40 PM EDT Office Visit [facility] WALK-IN [address] [address] Lennie Kaye MD 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 (Primary Dx); Pain of right shoulder region 06/28/2025 10:15 AM EDT Office Visit [facility] [address] [place] [phone] Emma Charles, OD Hypermetropia, bilateral (Primary Dx) 06/28/2025 Travel 06/19/2025 Telephone [facility] [address] [place] [address] [phone] Ayesha Szymanski NP 06/17/2025 Results Follow-Up [facility] MED[facility] [address] [place] [address] Felipa Reeves RN XR Hip 2 or 3 Views Right 06/14/2025 2:30 PM EDT Office Visit [facility] MED[facility] [address] [place] [address] Ayesha Szymanski NP Right inguinal pain (Primary Dx); Right hand pain 06/14/2025 Travel 06/13/2025 Telephone [facility] MED[facility] [address] [place] [address] Melissa Whitten MA CHARTPREP 05/28/2025 10:30 AM EDT Office Visit [facility] OPT[facility] [address] [place] [address] Michelle Schmidt, TYRONE Normal eye exam (Primary Dx); Hypermetropia, bilateral 05/28/2025 Travel 05/21/2025 Telephone [facility] [address] [place] [address] Vesna Bullock MA r/s appointment 05/08/2025 Telephone [facility] [address] [place] [address] Ayesha Szymanski NP Nurse Triage from Last 3 Months Social History Tobacco [...] with others, in a hotel, in a chcf, living outside on the street, on a [...] Sign Reading Time Taken Comments Blood Pressure 142/88 07/09/2025 9:53 AM EDT Pulse 65 07/09/2025 9:53 AM EDT Temperature 36.9 C (98.5 F) 07/09/2025 9:53 AM EDT Respiratory Rate 17 07/09/2025 9:53 AM EDT Oxygen Saturation 98% 07/09/2025 9:53 AM EDT Inhaled Oxygen Concentration - - Weight 81.3 kg (179 lb 3.2 oz) 07/09/2025 9:53 A M EDT Height - - Body Mass Index - - Plan of Treatment Upcoming Encounters Date Type Department Care Team (Late st Contact Info) Description 08/07/2025 10:15 AM EDT Office Visit [facility] MED[facility] [address] [place] [address] Ayesha Szymanski NP [address] [place] [address] Health Maintenance Due Date Last Done Comments CT Colonography 1971 Colonoscopy 1971 Colorectal Cancer Screening 1971 FIT DNA/Cologuard 1971 FIT 1971 FOBT 1971 HIV Screening 1971 Lipid Panel 1971 Sigmoidoscopy 1971 Hepatitis C Screening 1989 DTaP/Tdap/Td Vaccines (1 - Tdap) 1990 Hepatitis B Vaccines (1 of 3 - 19+ 3-dose series) 1990 Pneumococcal Vaccine: 50+ Years (1 of 1 - PCV) 2021 Zoster Vaccines (1 of 2) 2021 COVID-19 Vaccine (1 - 2023-2 5 season) 2025 Influenza Vaccine (#1) 2025 Depression Screening 03/22/2026 03/22/2025, 03/22/2025 Disability Screening 03/22/2026 03/22/2025 SDOH Screening 03/22/2026 03/22/2025 Alcohol/Substance Use Screening 06/14/2026 06/14/2025 Tobacco Screening 06/30/2026 06/30/2025 RSV Patients and Patients Aged 60 years [...] Name Priority Date/Time Associated Diagnosis Comments XR HIP 2 OR 3 VIEWS RIGHT Routine 06/14/2025 2:26 PM EDT Right inguinal pain from Last 3 Months Results * XR Hip 2 or 3 Views Right (06/14/2025 2:26 PM EDT) Anatomical Region Laterality Modality Lower Extremities, Hip Right Radiograp hic Imaging 06/14/2025 2:26 PM EDT Narrative 06/14/2025 3:44 PM EDT [address] [address] XRay Report Signed Patient: Filippo Santiago MR#: [id number] : 1970 Acct:[id number] Age/Sex: 54 / M ADM Date: 06/14/25 Loc: HO.HHCX Attending Dr: Ayesha Szymanski OUTREACH AND EDUCATION SOCIAL WORKER Ordering Physician: Ayesha Szymanski NP Date of Service: 06/14/25 Procedure(s): XR hip RT min 2V Accession Number(s): [id number] cc: Ayesha Szymanski OUTREACH AND EDUCATION SOCIAL WORKER EXAMINATION: XR HIP, RIGHT CLINICAL INFORMATION: right hip pain chronic after fall COMPARISON: None available. TECHNIQUE: AP and oblique views of the right hip. FINDINGS: No acute cortical disruption or malalignment. No lytic or blastic lesions. There is preservation with the joint space. XR/XR hip RT min 2V IMPRESSION: Normal x-ray, right hip. Electronically signed by: Harish Lucia MD 06/14/2025 03:42 PM EDT Dictated By: Harish Larson MD Signed By: <Electronically signed by Harish Everett MD in OV> 06/14/25 1542 DD/ 1426 TD/TT: 06/14/25 1500 Stonemason Helper: Procedure Note Donotuseinterpreter, Image - 06/14/2025 [place] [address] XRay Report Signed Patient: Filippo SantiagoMR#: [id number] : 1970Acct:[id number] Age/Sex: 54 / MADM Date: 06/14/25 Loc: HO.HHCX Attending Dr: Ayesha Szymanski OUTREACH AND EDUCATION SOCIAL WORKER Ordering Physician: Ayesha Szymanski OUTREACH AND EDUCATION SOCIAL WORKER Date of Service: 06/14/25 Procedure(s): XR hip RT min 2V Accession Number(s): [id number] cc: Ayesha Szymanski OUTREACH AND EDUCATION SOCIAL WORKER EXAMINATION: XR HIP, RIGHT CLINICAL INFORMATION: right hip pain chronic after fall COMPARISON: None available. TECHNIQUE: AP and oblique views of the right hip. FINDINGS: No acute cortical disruption or malalignment. No lytic or blastic lesions. There is preservation with the joint space. XR/XR hip RT min 2V IMPRESSION: Normal x-ray, right hip. Electronically signed by: Harish Lucia MD 06/14/2025 03:42 PM EDT RP Dictated By: Harish Larson MD Signed By: <Electronically signed by Harish Everett MDin OV> 06/14/25 1542 DD/ 1426 TD/TT: 06/14/25 1500 Stonemason Helper: us Ayesha Szymanski NP IMG XR PROCEDURES Edited Result - Final from Last 3 Months Insurance [facility] C3 Care Teams Family Life Counselor Relationship Specialty Start Date End Date Ayesha Szymanski NP [address] [place] [phone] PCP - General Family Medicine 01/21/25
== END 2025-07-31 09:08 | disposition home or self-care (01) ==
LOC: HO.HOSX 09:07
DX: M65.4 Radial styloid tenosynovitis [de Quervain] (principal)
CPT/HCPCS: 73130; 99212

== ENCOUNTER 2025-07-31 10:38 | Outpatient (AMB) | payer MEDICAID, SELFPAY ==
[2025-07-31 11:00] VITALS: BMI 27.1
--- NOTE | 2025-07-31 11:00 | MHC.OFFVIS ---
Vital Signs 07/31/25 11:00 Height 5 ft 8 in Weight 178 lb BMI 27.1 Intake Visit Reasons: STEWARD/STEWARDESS THIRD- Left thumb Injury Intake Note: Filippo is a 54 year old right hand dominant man who presents today as a New Patient for evaluation of a Left Thumb Laceration, DOI: ~ 1 year ago. 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 Complained of limited ROM. Patient reports since November, he has noticed his right shoulder hurts when he hyperextends his thumb upward. He believes his right thumb is locking up. He is taking Ibuprofen PRN with relief of pain. Denies previous surgeries to the right hand. Severity Of Illness Coordinator Required: Yes Severity Of Illness Coordinator Language: Hand Paint Mixer Services: Severity Of Illness Coordinator Present Severity Of Illness Coordinator Name: SEAN Longo/ZI Allergies No Known Allergies Allergy (Verified 07/31/25 11:04) HPI HPI STEWARD/STEWARDESS THIRD- Left thumb Injury: Details: Filippo is a 54 year old right hand dominant man who presents today as a New Patient for evaluation of a right Thumb Laceration, DOI: ~ 1 year ago. 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 Complained of limited ROM. Patient reports since November, he has noticed his right shoulder hurts when he hyperextends his thumb upward. He believes his right thumb is locking up. He is taking Ibuprofen PRN with relief of pain. Denies previous surgeries to the right hand. [facility] Social History (Updated 07/31/25 @ 11:04 by SEAN Ferris) Alcohol intake: never Patient Tobacco Use Status: Never used Tobacco Current occupational status: employed Current occupation: [employer], rt handed Review of Systems Const All systems reviewed & are unremarkable except as noted in HPI and below Physical Exam Vital Signs: BMI result Body Mass Index 27.1 Extrem Other: Patient is alert, oriented, and in no acute distress. Neuro: Normal sensation of the tips of all digits of the right hand at this time Vascular: Cap refill brisk Pain: Tenderness to palpation of right radial styloid Positive Erlinda on the right No pain with CMC grind on the right No tenderness to palpation of the A1 devora of right thumb ROM: Patient is able to make a closed fist and extend all digits of the right hand fully and without difficulty Skin: No lacerations or abrasions. General: Small area of edema noted over the 1st dorsal compartment of the right hand No ecchymosis, erythema, or evidence of infection. Psych: Appears grossly normal Affect normal Attitude cooperative Results Reviewed Results Reviewed: X-rays obtained in the office today and independently reviewed by me, Jm Corral PA-C, demonstrate no fracture or acute bony abnormality of the right wrist. Assessment & Plan Assessment & Plan (1) De Quervain's tenosynovitis, right: Code(s): M65.4 - Radial styloid tenosynovitis [de Quervain] Category: Medical Plan 1. Right de Quervain tenosynovitis Patient is educated about this condition Patient is educated about the treatment options available, namely therapy, injections, and bracing Patient would like to proceed with steroid injection, however as the patient is working in a [email or web address], I feel it is best to hold off on injection until he can have at least 1-2 days off Therefore, patient is booked in a Tuesday, as he has weekends off for injection Patient is amenable to this plan Coding Level of Care Code New Pt Level 3 (07098) Diagnoses De Quervain's tenosynovitis, right M65.4
== END 2025-07-31 11:23 | disposition home or self-care (01) ==
LOC: HO.HOS 10:38
DX: M65.4 Radial styloid tenosynovitis [de Quervain] (principal)
CPT/HCPCS: 99203

== ENCOUNTER → 2025-07-31 10:41 | Outpatient (BNV) | payer MEDICAID, SELFPAY | PROVIDERS: Visit Provider Radiology Diagnostic Radiology | DX: M79.641 Pain in right hand (principal) | CPT/HCPCS: 73130 ==

== ENCOUNTER 2025-08-20 13:58 | Outpatient (REF) | payer MEDICAID, SELFPAY ==
--- NOTE | ~2025-08-20 | US_ITS ---
CLINICAL HISTORY: ? hernia, RLQ PAIN Targeted ultrasound of right inguinal region Comparison: None provided Technique: Targeted sonographic imaging, including color Doppler imaging to the area of interest of right inguinal region was performed by the work force advisor. Multiple customer operations representative static and cine images were saved for review. Findings: Small right inguinal hernia probably contains fat with hyperemia. Enlarged lymph node with preserved fatty hilum, no cortical thickening, hilar pattern vascular flow 2.4 x 0.7 x 1.2 cm. Otherwise unremarkable. Impression: 1. Small right inguinal hernia probably contains fat with hyperemia, could be inflammatory or strangulated. 2. Right inguinal enlarged lymph node with benign sonographic morphology, most likely reactive, recommend clinical follow-up to ensure resolution. This document has been electronically signed by: Yaneli Iglesias MD on 08/21/2025 14:37:42
--- OUTSIDE RECORDS SUMMARY | 2025-08-20 15:20 | XMS_ITS | Clinical Summary ---
Author Organization [employer] Address [address] [facility] 7[address] [place] [address] Care Team Providers Care Assisted Living Coordinator Name Role Phone AsadAyesha garcia GUEVARA Primary Care Provider [phone] Allergies No known active allergies Medications Blood [...] bedtime (pain). 150 g 3 025 Active amoxicillin-cla vulanate (Augmentin) 875-125 MG tabletIndicatio ns:Acute otitis media, unspecified otitis media type TAKE 1 TABLET BY MOUTH TWICE A DAY FOR 7 DAYS 14 tablet 025 Active simethicone (Mylicon,Gas-X) 180 MG capsuleIndicati ons:Bloating Take 1 capsule (180 mg) by mouth every 8 (eight) hours if needed for flatulence. 30 capsule Active cyclobenzaprine (Flexeril) 5 MG tabletIndicatio ns:Pain of right shoulder region,Neck pain Take 1 tablet (5 mg) by mouth at bedtime for 15 days. 15 tablet 025 2024 simethicone (Mylicon,Gas-X) 180 MG capsuleIndicati ons:Bloating Take 1 capsule (180 mg) by mouth every 8 (eight) hours if needed for flatulence. 30 capsule 025 2024 Discontinued(R eorder (will not trigger notification to Pharmacy)) ciprofloxacin-d exAMETHasone (CiproDEX) otic suspension Administer 4 drops into affected ear(s) 2 times daily for 7 days. 7.5 mL 025 2024 Discontinued ciprofloxacin-d exAMETHasone (CiproDEX) otic suspensionIndic ations:Chronic otitis externa of right ear, unspecified type Administer 4 drops into affected ear(s) 2 times daily for 7 days. 7.5 mL 025 2024 Active Problems Problem Noted Date Diagnosed Date Elevated blood pressure reading 08/07/2025 Assessment & Plan (08/07/2025 10:43 AM EDT): Chronic otitis externa of right ear 08/07/2025 Assessment & Plan (08/07/2025 10:43 AM EDT): Dietary counseling 08/07/2025 Assessment & Plan (08/07/2025 10:43 AM EDT): Dietary Recommendations: Fruits, vegetables, whole grains, protein foods, and fat-free or low-fat dairy products are healthy choices. Eat different types of protein foods in your diet. This can include seafood, lean meats, poultry, beans, peas, lentils, nuts, seeds, soy products, and eggs. Limit foods and beverages higher in added sugars, saturated fat, and sodium. Exercise Recommendations: At least 150 minutes of moderate-intensity physical activity per week, or an equivalent combination of moderate- and vigorous-intensity activity Exercise counseling 08/07/2025 Assessment & Plan (08/07/2025 10:43 AM EDT): Neck pain 07/09/2025 Assessment & Plan (07/09/2025 [...] Encounters Date Type Department Care Team Description 08/07/2025 10:15 AM EDT Office Visit [facility] MEDICINE [address] [place] [phone] Ayesha Szymanski NP Elevated blood pressure reading (Primary Dx); Chronic otitis externa of right ear, unspecified type; Dietary counseling; Exercise counseling; Bloating 08/07/2025 Telephone [facility] MED[facility] [address] [place] [phone] Felipa Reeves RN 08/07/2025 Travel 08/01/2025 Telephone [facility] [address] [place] [address] Ayesha Szymanski NP Chart Prep 07/09/2025 10:20 AM EDT Office Visit [facility] WALK[facility] [address] [place] [phone] Sherly Voss MD Bloating (Primary Dx); Pain of right shoulder region; Neck pain; Acute otitis media, unspecified otitis media type; Lymphadenopathy of head and neck 07/09/2025 Refill [facility] [address] [place] [address] Graef, Ayesha, CORROSION CONTROL FITTER Acute otitis media, unspecified otitis media type 07/09/2025 Travel 07/01/2025 Outside Procedure [facility] [address] [place] [address] Emma Charles, OD Presbyopia (Primary Dx) 06/28/2025 1:40 PM EDT Office Visit [facility] [address] [place] [address] Lennie Kaye MD 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 (Primary Dx); Pain of right shoulder region 06/28/2025 10:15 AM EDT Office Visit [facility] OPTOM[facility]RY [address] [place] [phone] Emma Charles, OD Hypermetropia, bilateral (Primary Dx) 06/28/2025 Travel 06/19/2025 Telephone [facility] [address] [place] [address] Ayesha Szymanski NP 06/17/2025 Results Follow-Up [facility] MED[facility]INE [address] [place] [phone] Felipa Reeves RN XR Hip 2 or 3 Views Right 06/14/2025 2:30 PM EDT Office Visit [facility] MEDICINE [address] [place] [address] Ayesha Szymanski NP Right inguinal pain (Primary Dx); Right hand pain 06/14/2025 Travel 06/13/2025 Telephone [facility] MED[facility] [address] [place] [phone] Melissa Whitten MA CHARTPREP 05/28/2025 10:30 AM EDT Office Visit [facility] OPTOMETRY [address] [place] [phone] Michelle Schmidt, TYRONE Normal eye exam (Primary Dx); Hypermetropia, bilateral 05/28/2025 Travel 05/21/2025 Telephone [facility] MEDICINE [address] [place] [address] Vesna Bullock MA r/s appointment from Last 3 Months Social History Tobacco [...] with others, in a hotel, in a fpc, living outside on the street, on a [...] Sign Reading Time Taken Comments Blood Pressure 140/79 08/07/2025 10:09 AM EDT Pulse 64 08/07/2025 10:09 AM EDT Temperature 35.1 C (95.1 F) 08/07/2025 10:09 AM EDT Respiratory Rate 15 08/07/2025 10:09 AM EDT Oxygen Saturation 97% 08/07/2025 10:09 AM EDT Inhaled Oxygen Concentration - - Weight 81.6 kg (180 lb) 08/07/2025 10:09 AM EDT Height 172.7 cm (5' 8 ) 08/07/2025 10:09 AM EDT Body Mass Index 27.37 08/07/2025 10:09 AM EDT Plan of Treatment Health Maintenance Due Date Last Done Comments [...] Alcohol/Substance Use Screening 06/14/2026 06/14/2025 Tobacco Screening 08/07/2026 08/07/2025 RSV Patients and Patients Aged 60 years [...] PM EDT Narrative 06/14/2025 3:44 PM EDT [address] [address] XRay Report Signed Patient: Filippo Santiago MR#: [id number] : 1970 Acct:[id number] Age/Sex: 54 / M ADM Date: 06/14/25 Loc: HO.HHCX Attending Dr: Ayesha Szymanski CORROSION CONTROL FITTER Ordering Physician: Ayesha Szymanski CORROSION CONTROL FITTER Date of Service: 06/14/25 Procedure(s): XR hip RT min 2V Accession Number(s): [id number] cc: Ayesha Szymanski CORROSION CONTROL FITTER EXAMINATION: XR HIP, RIGHT CLINICAL INFORMATION: right [...] 06/14/25 1542 DD/ 1426 TD/TT: 06/14/25 1500 Associate Professor Of Philosophy: Procedure Note Donotuseinterpreter, Image - 06/14/2025 [facility] [address] [place] [address] XRay Report Signed Patient: Sonia Santiago#: [id number] : 1970Acct:[id number] Age/Sex: 54 / MADM Date: 06/14/25 Loc: HO.HHCX Attending Dr: Ayesha Szymanski CORROSION CONTROL FITTER Ordering Physician: Ayesha Szymanski NP Date of Service: 06/14/25 Procedure(s): XR hip RT min 2V Accession Number(s): [id number] cc: Ayesha Szymanski CORROSION CONTROL FITTER EXAMINATION: XR HIP, RIGHT CLINICAL INFORMATION: right [...] 06/14/25 1542 DD/ 1426 TD/TT: 06/14/25 1500 Associate Professor Of Philosophy: Ayesha Szymanski CORROSION CONTROL FITTER IMG XR PROCEDURES Edited Result - Final from Last 3 Months Insurance [facility] C3 Care Teams Assisted Living Coordinator Relationship Specialty Start Date End Date Ayesha Szymanski NP [address] [place] [address] PCP - General Family Medicine 01/21/25
== END 2025-08-20 13:59 | disposition home or self-care (01) ==
LOC: HO.US 13:58
PROVIDERS: PCP Nurse Practitioner Family; Visit Provider Nurse Practitioner Family
DX: R10.31 Right lower quadrant pain (principal)
CPT/HCPCS: 76857

== ENCOUNTER → 2025-08-20 14:03 | Outpatient (BNV) | payer MEDICAID, SELFPAY | PROVIDERS: PCP Nurse Practitioner Family; Visit Provider Radiology Diagnostic Radiology | DX: K40.90 Unilateral inguinal hernia, without obstruction or gangrene, not specified as recurrent (principal); R59.0 Localized enlarged lymph nodes | CPT/HCPCS: 76857 ==

== ENCOUNTER 2025-09-17 13:40 | Outpatient (AMB) | payer MEDICAID, SELFPAY ==
--- NOTE | 2025-09-17 13:43 | A.OFFVIS_ITS ---
Vital Signs 3 09/17/25 13:59 Height 5 ft 8 in Weight 181 lb BMI 27.5 BP 140/75 H Blood Pressure Location Lt brachial Position Sitting Pulse 68 Intake Visit Reasons: R ingunial pain Intake Note: Patient is seen in office for evaluation of a right inguinal pain. Pt c/o:feels pain on the right groin for the past year, admits to pain mostly when walking too fast or too much, he was playing ball and fell down hurt his leg and has pain since, denies n/v/d/c Senior Software Manager Required: Yes Senior Software Manager Language: Solutions Operator Services: Senior Software Manager Present Senior Software Manager Name: Michelle ESTRADA Information Interpreted: non-clinical & clinical Cytogenetics Laboratory Manager: Cytogenetics Laboratory Manager Present Accompanied by: Self / Same As Patient Allergies No Known Allergies Allergy (Verified 09/17/25 13:45) Medication List - Last Reconciled 09/17/25 by Larry Cook MD diclofenac sodium 1% 2 grams topical QID ibuprofen 800 mg PO Q8H PRN naproxen 500 mg PO BID PRN HPI Comments Details: 55-year-old male patient presenting with complaints of right-sided abdominal pain. The pain began approximately 1 year ago shortly after falling on his right side. The pain has remained relatively stable with maybe some slight improvement over time. He denies any palpable mass or lump in the right groin and denies associated symptoms including nausea, vomiting, constipation, or diarrhea. He previously underwent a CT abdomen and pelvis performed on 12/23/2024. This does show a fat containing right inguinal hernia. A pelvic ultrasound performed on 08/21/2025 also confirms a right inguinal hernia probably containing fat hyperemia which could be inflammatory or strangulated. A right inguinal enlarged lymph node with benign sonographic morphology is also identified and felt to be most likely reactive. He reports being employed by [employer] working in the [employer] [place] which frequently requires heavy lifting. [facility] Social History Alcohol intake: never Patient Tobacco Use Status: Never used Tobacco Current occupational status: employed Current occupation: warehouse, rt handed Review of Systems Const All systems reviewed & are unremarkable except as noted in HPI and below Physical Exam Vital Signs: Last Vital Signs Pulse 68 09/17/25 13:59 BP 140/75 H 10/28/25 13:59 BMI result Body Mass Index 27.5 Const General: cooperative and no acute distress Nutritional Appearance: well nourished Orientation/consciousness: patient oriented x3 Limitations: no limitations HEENT Head: Yes normocephalic and Yes atraumatic Ears: hearing grossly normal bilaterally Resp Effort & Inspection: normal respiratory effort, no audible wheezes, no cough and no respiratory distress Cardio Jugular venous distension: no JVD GI Other: Examination in the standing position with Valsalva maneuvers confirms a right inguinal hernia which is easily reducible with light pressure. No left inguinal hernias appreciated. Inspection: Yes normal to inspection Palpation (GI): Soft to palpation, nontender, no guarding, not rigid and No hepatosplenomegaly present Percussion: Yes normal to percussion Auscultation: normal bowel sounds Rectal Exam - Male: Yes deferred Skin Other: Warm, dry, no rash Neuro General: patient oriented x3 Extrem General: Yes no clubbing, cyanosis or edema Results Reviewed Results Reviewed: CT abdomen and pelvis: Assessment & Plan Assessment & Plan (1) Reducible right inguinal hernia: Code(s): K40.90 - Unilateral inguinal hernia, without obstruction or gangrene, not specified as recurrent Category: Medical Plan 55-year-old male patient presenting with pain in the right groin found on examination to have a palpable right inguinal hernia which is easily reducible. This has confirmed on ultrasound and CT abdomen and pelvis. We discussed repair of this right inguinal hernia including the relative risks, alternatives and benefits. He consents to repair of the right inguinal hernia with mesh and we will be scheduled as a short-stay surgery. Coding Level of Care Code New Pt Level 4 (63612) Diagnoses Reducible right inguinal hernia K40.90
[2025-09-17 13:59] VITALS: BP 140/75; PULSE 68; BMI 27.5
== END 2025-09-17 14:32 | disposition home or self-care (01) ==
LOC: HO.HGS 13:41
PROVIDERS: PCP Nurse Practitioner Family; Visit Provider Surgery
DX: K40.90 Unilateral inguinal hernia, without obstruction or gangrene, not specified as recurrent (principal)
CPT/HCPCS: 99204

== ENCOUNTER → 2025-09-17 13:40 | Outpatient (BNVA) | payer MEDICAID, SELFPAY | PROVIDERS: PCP Nurse Practitioner Family; Visit Provider Surgery | DX: Z01.818 Encounter for other preprocedural examination (principal); K40.90 Unilateral inguinal hernia, without obstruction or gangrene, not specified as recurrent | CPT/HCPCS: 99202 ==

== ENCOUNTER 2025-09-26 10:20 | Day surgery (SDC) | payer MEDICAID, SELFPAY ==
--- OUTSIDE RECORDS SUMMARY | 2025-09-18 12:58 | XMS_ITS | Clinical Summary ---
Author Organization [employer] Address [address] [facility] [address] [place] [address] Care Team Providers Care Egg Grader Name Role Phone AsadAyesha garcia GUEVARA Primary Care Provider [phone] Allergies No known active allergies Medications Blood Pressure kitIndications:E levated blood pressure reading 1 each 2 times daily. 1 kit 01/10/20 25 026 Active psyllium (Metamucil Smooth Texture) 58.6 % powder Mix 1-2 tablespoonfuls in 8 oz of liquid and drink daily. 425 g 1 01/16/20 25 Active Senna-Time 8.6 MG tablet TAKE 1 TABLET (8.6 MG) BY MOUTH IF NEEDED AT BEDTIME FOR CONSTIPATION. 90 tablet 01/25/20 25 Active naproxen (Naprosyn) 500 MG tablet Take 1 tablet (500 mg) by mouth if needed in the morning and at bedtime for mild pain. 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 60 tablet 2 06/28/20 25 Active Diclofenac Sodium 1 % gel Apply 2 g topically if needed in the morning, at noon, in the evening, and at bedtime (pain). 150 g 3 06/28/20 25 Active amoxicillin-clav ulanate (Augmentin) 875-125 MG tabletIndication s:Acute otitis media, unspecified otitis media type TAKE 1 TABLET BY MOUTH TWICE A DAY FOR 7 DAYS 14 tablet 07/09/20 25 Active simethicone (Mylicon,Gas-X) 180 MG capsuleIndicatio ns:Bloating Take 1 capsule (180 mg) by mouth every 8 (eight) hours if needed for flatulence. 30 capsule 08/07/20 25 Active Active Problems Problem Noted Date Diagnosed [...] Encounters Date Type Department Care Team Description 08/22/2025 Telephone [facility] [address] [place] [id number] Ayesha Szymanski NP 08/21/2025 Orders Only [facility] [address] [place] [phone] Ayesha Szymanski NP Right inguinal pain (Primary Dx) 08/07/2025 10:15 AM EDT Office Visit [facility] [address] [place] [address] [phone] Ayesha Szymanski NP Elevated blood pressure reading (Primary Dx); Chronic otitis externa of right ear, unspecified type; Dietary counseling; Exercise counseling; Bloating 08/07/2025 Telephone [facility] [address] [place] [phone] Felipa Reeves RN 08/07/2025 Travel 08/01/2025 Telephone [facility] [address] [place] [address] Ayesha Szymanski NP Chart Prep 07/09/2025 10:20 AM EDT Office Visit [facility] [address] [place] [phone] Sherly Voss MD Bloating (Primary Dx); Pain of right shoulder region; Neck pain; Acute otitis media, unspecified otitis media type; Lymphadenopathy of head and neck 07/09/2025 Refill [facility] [address] [place] [address] Ayesha Szymanski NP Acute otitis media, unspecified otitis media type 07/09/2025 Travel 07/01/2025 Outside Procedure [facility] [address] [place] [address] Emma Charles, OD Presbyopia (Primary Dx) 06/28/2025 1:40 PM EDT Office Visit [facility] [address] [place] [phone] Lennie Kaye MD 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 (Primary Dx); Pain of right shoulder region 06/28/2025 10:15 AM EDT Office Visit [facility] [address] [place] [address] Melvin, Emma, OD Hypermetropia, bilateral (Primary Dx) 06/28/2025 Travel 06/19/2025 Telephone [facility] [address] [place] [address] Ayesha Szymanski NP from Last 3 Months Social History Tobacco [...] with others, in a hotel, in a skilled nursing, living outside on the street, on a [...] 08/07/2025 10:09 AM EDT Plan of Treatment Upcoming Encounters Date Type Department Care Team (Late st Contact Info) Description 11/04/2025 3:45 PM EST Office Visit [facility] [address] [place] [address] Ayesha Szymanski, GUEVARA [address] [place] [address] Health Maintenance Due Date Last Done Comments [...] Procedure Name Priority Date/Time Associated Diagnosis Comments US PELVIS LIMITED Routine 08/21/2025 2:3 7 PM EDT Right inguinal pain from Last 3 Months Results * US Pelvis Limited (08/21/2025 2:37 PM EDT) Anatomical Region Laterality Modality Pelvis Ultrasound 08/21/2025 2:37 PM EDT Narrative 08/21/2025 2:39 PM EDT [place] [address] Ultrasound Report Signed with Carmen Patient: Fliippo Santiago MR#: [id number] : 1970 Acct:[id number] Age/Sex: 55 / M ADM Date: 08/20/25 Loc: HO.US Attending Dr: Ayesha Szymanski NP Ordering Physician: Ayesha Szymanski NP Date of Service: 08/20/25 Procedure(s): US pelvic limited Accession Number(s): [id number] cc: Ayesha Szymanski NP Reason for Exam: ? hernia, RLQ PAIN ADDENDUM This document has been electronically signed by: Yaneli Iglesias MD on 08/21/2025 14:37:42 ADDENDUM: Receipt of this report by the clinical staff was confirmed with Catie Contreras RN on Aug 21, 2025 14:50:00 EDT. This document has been electronically signed by: Bailee Valentin on 08/21/2025 14:51:12 Addendum Dictated By: Yaneli Iglesias MD Addendum Signed By: <Electronically signed by Yaneli Iglesias MD in OV> 08/21/251450 Addendum Cosigned By: DD/ /15/1436 TD/TT: 08/21/2512/15/1450 CLINICAL HISTORY: ? hernia, RLQ PAIN Targeted ultrasound of right inguinal region Comparison: None provided Technique: Targeted sonographic imaging, including color Doppler imaging to the area of interest of right inguinal region was performed by the pediatric np. Multiple compliance representative dealer static and cine images were saved for review. Findings: Small right inguinal hernia probably contains fat with hyperemia. Enlarged lymph node with preserved fatty hilum, no cortical thickening, hilar pattern vascular flow 2.4 x 0.7 x 1.2 cm. Otherwise unremarkable. Impression: 1. Small right inguinal hernia probably contains fat with hyperemia, could be inflammatory or strangulated. 2. Right inguinal enlarged lymph node with benign sonographic morphology, most likely reactive, recommend clinical follow-up to ensure resolution. This document has been electronically signed by: Yaneli Iglesias MD on 08/21/2025 14:37:42 Dictated By: Yaneli Iglesias MD Signed By: <Electronically signed by Yaneli Iglesias MD in OV> 08/21/25 143 DD/ 36 TD/TT: 08/21/251436 Flight Engineer Instructor: Procedure Note Donotuseinterpreter, Image - 08/21/[address] [address] Ultrasound Report Signed with Addbarbara Patient: Filippo Santiago#: [id number] : 1970Acct:[id number] Age/Sex: 55 / MADM Date: 08/20/25 Loc: HO.US Attending Dr: Ayesha Szymanski NP Ordering Physician: Ayesha Szymanski NP Date of Service: 08/20/25 Procedure(s): US pelvic limited Accession Number(s): [id number] cc: Ayesha Szymanski NP Reason for Exam: ? hernia, RLQ PAIN ADDENDUM This document has been electronically signed by: Yaneli Iglesias MD on 08/21/2025 14:37:42 ADDENDUM: Receipt of this report by the clinical staff was confirmed with Catie Contreras RN on Aug 21, 2025 14:50:00 EDT. This document has been electronically signed by: Bailee Valentin on 08/21/2025 14:51:12 Addendum Dictated By: Yaneli Iglesias MD Addendum Signed By: <Electronically signed by Yaneli Iglesias MD inOV> 08/21/251450 Addendum Cosigned By: DD/ /15/1436 TD/TT: 08/21/2512/15/1450 CLINICAL HISTORY: ? hernia, RLQ PAIN Targeted ultrasound of right inguinal region Comparison: None provided Technique: Targeted sonographic imaging, including color Doppler imaging to the area of interest of right inguinal region was performed by the pediatric np. Multiple compliance representative dealer static and cine images were saved for review. Findings: Small right inguinal hernia probably contains fat with hyperemia. Enlarged lymph node with preserved fatty hilum, no cortical thickening, hilar pattern vascular flow 2.4 x 0.7 x 1.2 cm. Otherwise unremarkable. Impression: 1. Small right inguinal hernia probably contains fat with hyperemia, could be inflammatory or strangulated. 2. Right inguinal enlarged lymph node with benign sonographic morphology, most likely reactive, recommend clinical follow-up to ensure resolution. This document has been electronically signed by: Yaneli Iglesias MD on 08/21/2025 14:37:42 Dictated By: Yaneli Iglesias MD Signed By: <Electronically signed by Yaneli Iglesias MD in OV> 08/21/251438 DD/ 36 TD/TT: 08/21/251436 Flight Engineer Instructor: us Ayesha Szymanski NP IMG US PROCEDURES Edited Result - Final from Last 3 Months Insurance [facility] C3 Care Teams Egg Grader Relationship Specialty Start Date End Date Ayesha Szymanski NP [address] [place] [address] PCP - General Family Medicine 01/21/25
[2025-09-24 11:39] VITALS: BMI 27.5
[2025-09-26] VITALS (7 sets, daily range): BP systolic 124–135; BP diastolic 70–83; PULSE 62–82; RESP 13–16; TEMP 36.3; O2SAT 95–99; BMI 27.4
--- NOTE | 2025-09-26 11:17 | HO.ANESPROP2 ---
Documented by User: Emi Bauer NP 09/24/25 10:16 HPI - Anesthesia Eval Consult details Narrative: 55yo M for Right Repair Hernia Inguinal Reducible with mesh Hungarian Creole speaking [facility] Active Problems Active Problems: All Active Problems Reducible right inguinal hernia (Acute) De Quervain's tenosynovitis, right (Acute) Past Medical History Medical History (Updated 09/26/25 @ 11:12 by Viky Kaufman RN) No pertinent past medical history Surgical History Surgical History (Updated 09/26/25 @ 11:15 by Viky Kaufman RN) H/O tooth extraction Social History Social History Alcohol intake: never Patient Tobacco Use Status: Never used Tobacco Use of substances other than those prescribed or required for medical reasons: No Are you DNR?: No Advance Directives: No Advance Directives Information Provided: Yes Current occupational status: employed Current occupation: [employer] Allergies Allergy/AdvReac Type Severity Reaction Status Date / Time No Known Allergies Allergy Verified 09/17/25 13:45 Home Medications ?Medication ?Instructions ?Recorded ?Confirmed ?Last Taken ?Type diclofenac sodium 1 % topical gel 2 g topical QID 09/17/25 09/24/25 Unknown History ibuprofen 800 mg tablet 800 mg PO Q8H PRN Pain 09/17/25 09/24/25 Unknown History naproxen 500 mg tablet 500 mg PO BID PRN Pain 09/17/25 09/24/25 Unknown History Exam Pertinent Lab Results Pertinent Lab Results: Laboratory Tests 12/23/24 08:45 WBC 5.3 Hgb 15.5 Hct 46.2 Plt Count 197 Sodium 142 Potassium 4.5 Chloride 108 Carbon Dioxide 24 BUN 17 H Creatinine 0.75 Narrative Narrative: EKG 12/2024 Vent. Rate : 67 BPM Atrial Rate : 67 BPM P-R Int : 144 ms QRS Dur : 88 ms QT Int : 390 ms P-R-T Axes : 63 -6 41 degrees QTcB Int : 412 ms Normal sinus rhythm Nonspecific T wave abnormality Abnormal ECG No previous ECGs available Assessment and Plan Assessment Anesthesia Assessment: Chart Reviewed Documented by User: Yaquelin Bruno DO 09/26/25 11:19 [facility] Past Medical History Medical History (Updated 09/26/25 @ 11:12 by Viky Kaufman, RN) No pertinent past medical history Family History Family history of problems with anesthesia: No Surgical History Surgical History (Updated 09/26/25 @ 11:15 by Viky Kaufman RN) H/O tooth extraction History of Problems with Anesthesia: No Social History Social History Alcohol intake: never Patient Tobacco Use Status: Never used Tobacco Use of substances other than those prescribed or required for medical reasons: No Are you DNR?: No Advance Directives: No Advance Directives Information Provided: Yes Current occupational status: employed Current occupation: [employer] Allergies Allergy/AdvReac Type Severity Reaction Status Date / Time No Known Allergies Allergy Verified 09/17/25 13:45 Home Medications ?Medication ?Instructions ?Recorded ?Confirmed ?Last Taken ?Type diclofenac sodium 1 % topical gel 2 g topical QID 09/17/25 09/24/25 Unknown History ibuprofen 800 mg tablet 800 mg PO Q8H PRN Pain 09/17/25 09/24/25 Unknown History naproxen 500 mg tablet 500 mg PO BID PRN Pain 09/17/25 09/24/25 Unknown History Exam Exam Date and Time: 09/26/25 1115 Height,Weight and Vital Signs: Height 5 ft 8 in Weight 81.7 kg Airway Mallampati Class: I TM Dist: >3cm Neck ROM: Full Loose/Missing/Broken Teeth: No (patient denies any loose or broken teeth) Heart: S1S2 Lungs: CTAB Assessment and Plan Assessment Anesthesia Assessment: Anesthesia Plan Discussed and Chart Reviewed Final Anesthetic Review Family History of Problems with Anesthesia: No History of Problems with Anesthesia: No NPO: Yes ASA Class: I Final Preanesthetic Review: No Changes in Pt Med Stat, Meds/Allgs Chart Reviewed, Consent Obtained/Reviewed and Anes Risks/Benef Reviewed Patient Risk: Low Procedure Risk: Low Anesthetic Plan Anesthetic Plan: GA and Agree w/ Assess. and Plan Disposition: Standard PACU
[2025-09-26] MEDS: Lactated Ringers 1,000 ML 100 ML IVCONT (11:32)
--- NOTE | 2025-09-26 11:44 | MHC.SHP ---
Pre-Procedural Eval Section A - 24 Hr Update-Section A only Date of Service: 09/26/25 The patient is an INPATIENT: No Changes since office visit: Yes Patient answered all questions; No Cold of Flu in the past 2 weeks, No New Medical Problems and No Changes in Medication The patient has been examined within 24 hours of the surgical procedure. The History & Physical has been completed within 30 days and I have reviewed it.: Yes Section B - Complete if H&P > 30 days Chief Complaint: Unilateral inguinal hernia, without obstruction Allergies: Allergies Allergy/AdvReac Type Severity Reaction Status Date / Time No Known Allergies Allergy Verified 09/17/25 13:45 Plan Diagnosis/Plan: Unchanged I have reviewed the history and physical and performed a pertinent physical examination on my patient. No changes have occurred unless specified. Time Spent With Patient Time: Total time managing care of this patient today ____ minutes.
--- NOTE | 2025-09-26 13:20 | W.PM.OPN ---
Operative Note Operative Note Date of Service: 09/26/25 Narrative: Preoperative diagnosis: Reducible right inguinal hernia Postoperative diagnosis: Same Procedure: Repair of reducible right inguinal hernia with mesh Surgeon: Larry Cook MD [id number] Software Engineer: Karsten Rocha PA-C Anesthesia: General LMA Indications for procedure: 55-year-old male patient presenting with a enlarging hernia of the right groin which increases with Valsalva and reduces with light pressure Operative findings: Reducible direct right inguinal hernia Specimen: None Estimated blood loss: 2 mL Complications: None Procedure details: Patient was brought to the OR and placed in a supine position. After administering general anesthesia the patient's abdomen was prepped with ChloraPrep and draped in a sterile fashion. A surgical time-out was called the consent confirmed. Patient received preoperative antibiotics and Venodyne boots were in place. Local anesthesia was infiltrated over the right inguinal ligament. Incision was then made with a scalpel and carried out through subcutaneous tissue, past Tresa's fascia and up to the external oblique aponeurosis. Additional local was infiltrated below the external oblique aponeurosis. This was then incised with a scalpel widened with the Metzenbaum scissors. The spermatic cord was then dissected free from the surrounding inguinal canal and retracted using a Sonia drain. An obvious direct hernia was identified. Examination of the cord revealed no indirect hernia. Fibers of the internal oblique and transversalis aponeurosis were then incised with the electrocautery between Allis clamps. The preperitoneal space was entered this was then widened with an open Ray-Rukhsana sponge. A large PHS mesh was then obtained. The circular underlay was deployed within the preperitoneal space in the overlay secured to the pubic tubercle, conjoined tendon, and shelving edge of the inguinal ligament using a 0 Polysorb suture. A slit was made in the mesh in the mesh wrapped around the spermatic cord at the internal ring. This was then secured to the shelving edge using the 0 Polysorb suture. The wrap was tight enough to allow the passage of the tip of the index finger only. Wounds were irrigated with saline solution and suctioned dry. External oblique aponeurosis was then closed using a running 2-0 Polysorb suture. 8 mL of Zenrelef was then instilled below the external oblique aponeurosis. Tresa's fascia and dermis were then reapproximated using interrupted 3-0 Polysorb sutures. Skin was closed using a running subcuticular 4-0 Polysorb suture. Steri-Strips, 4 x 4 gauze and Tegaderm were then applied. The patient tolerated the procedure well. Sponge, instrument, and needle counts reported as correct. The patient was transferred to PACU in stable condition.
== END 2025-09-26 14:40 | disposition home or self-care (01) ==
PROVIDERS: PCP Nurse Practitioner Family; Visit Provider Surgery
PROC: (CPT 49505; principal; 2025-09-26 11:10)
DX: K40.90 Unilateral inguinal hernia, without obstruction or gangrene, not specified as recurrent (principal); R10.10 Upper abdominal pain, unspecified; Z91.81 History of falling; Z79.1 Long term (current) use of non-steroidal anti-inflammatories (NSAID); Z79.899 Other long term (current) drug therapy
CPT/HCPCS: 49505; C1781; J0131; J0668; J0690; J1100; J2003; J2371; J2405; J2704; J3010

== ENCOUNTER → 2025-09-26 10:20 | Outpatient (BNV) | payer MEDICAID, SELFPAY | PROVIDERS: PCP Nurse Practitioner Family; Visit Provider Surgery | DX: K40.90 Unilateral inguinal hernia, without obstruction or gangrene, not specified as recurrent (principal) | CPT/HCPCS: 49505 ==

== ENCOUNTER 2025-10-04 11:16 | Outpatient (AMB) | payer MEDICAID, SELFPAY ==
[2025-10-04 11:22] VITALS: BMI 27.4
--- NOTE | 2025-10-04 11:22 | A.OFFVIS_ITS ---
Vital Signs 10/04/25 11:22 Height 5 ft 8 in Weight 180 lb BMI 27.4 Intake Visit Reasons: OV- R de Quervain inj Intake Note: Filippo is a 55 year old right hand dominant male who presents today for follow up of Right de Quervain Tenosynovitis. An injection was discussed on 07/31/25 however this was postponed until today as he was scheduled to work. Patient works at a warehouse. Patient reports today his pain has improved. He would like to hold off on the injection today. Patient status post right inguinal hernia repair 09/26/25. Wood Crew Supervisor Required: Yes Wood Crew Supervisor Language: Preparer Making Department Services: Wood Crew Supervisor Present Wood Crew Supervisor Name: Donta, RMA/ZI Allergies No Known Allergies Allergy (Verified 09/17/25 13:45) HPI HPI OV- R de Quervain inj: Details: Filippo is a 55 year old right hand dominant male who presents today for follow up of Right de Quervain Tenosynovitis. An injection was discussed on 07/31/25 however this was postponed until today as he was scheduled to work. Patient works at a warehgiftee. Patient reports today his pain has improved. He would like to hold off on the injection today, as his symptoms have improved drastically and he does not experience any symptoms at baseline at this time. Patient status post right inguinal hernia repair 09/26/25. [facility] Medical History (Updated 09/26/25 @ 11:12 by Viky Kaufman RN) No pertinent past medical history Surgical History (Updated 09/26/25 @ 11:15 by Viky Kaufman RN) H/O tooth extraction Social History Alcohol intake: never Comment: some grimacing when standing, reported no pain Patient Tobacco Use Status: Never used Tobacco Current occupational status: employed Current occupation: warehouse, rt handed Review of Systems Const All systems reviewed & are unremarkable except as noted in HPI and below Physical Exam Vital Signs: BMI result Body Mass Index 27.4 Extrem Other: Patient is alert, oriented, and in no acute distress. Neuro: Normal sensation of the tips of all digits of the right hand at this time Vascular: Cap refill brisk Pain: No Tenderness to palpation of right radial styloid Negative Erlinda on the right No pain with CMC grind on the right No tenderness to palpation of the A1 devora of right thumb ROM: Patient is able to make a closed fist and extend all digits of the right hand fully and without difficulty Skin: No lacerations or abrasions. General: No further edema noted No ecchymosis, erythema, or evidence of infection. Psych: Appears grossly normal Affect normal Attitude cooperative Assessment & Plan Assessment & Plan (1) De Quervain's tenosynovitis, right: Code(s): M65.4 - Radial styloid tenosynovitis [de Quervain] Category: Medical Plan 1. Right de Quervain tenosynovitis With symptomatic resolution since previous appointment Due to symptomatic resolution, I do not feel any injections indicated at this ti me Patient agrees with this Patient is educated that if he does experience symptom recurrence, he should call us for reassessment and discussion of injection Patient understands this and is amenable to this plan Follow-up as needed with any acute concerns Coding Level of Care Code Est Pt Level 3 (30638) Diagnoses De Quervain's tenosynovitis, right M65.4
--- OUTSIDE RECORDS SUMMARY | 2025-10-04 17:19 | XMS_ITS | Clinical Summary ---
Author Organization [employer] Address [address] [facility] [address] [place] [address] Care Team Providers Care Emr Specialist Name Role Phone AsadAyesha garcia GUEVARA Primary Care Provider [phone] Allergies No known active allergies Medications Blood [...] Encounters Date Type Department Care Team Description 09/23/2025 9:15 AM EST Office Visit [facility] [address] [place] [address] Melvin, Emma, OD Hypermetropia, bilateral (Primary Dx) 08/22/2025 Telephone [facility] [address] [place] [phone] Ayesha Szymanski NP 08/21/2025 Orders Only [facility] [address] [place] [id number] Ayesha Szymanski NP Right inguinal pain (Primary Dx) 08/07/2025 10:15 AM EDT Office Visit [facility] [address] [place] [address] Ayesha Szymanski NP Elevated blood pressure reading (Primary Dx); Chronic otitis externa of right ear, unspecified type; Dietary counseling; Exercise counseling; Bloating 08/07/2025 Telephone [facility] [address] [place] [phone] Felipa Reeves RN 08/07/2025 Travel 08/01/2025 Telephone [facility] [address] [place] [address] Ayesha Szymanski NP Chart Prep 07/09/2025 10:20 AM EDT Office Visit [facility] [address] [place] [phone] Sherly Voss MD Bloating (Primary Dx); Pain of right shoulder region; Neck pain; Acute otitis media, unspecified otitis media type; Lymphadenopathy of head and neck 07/09/2025 Refill [facility] [address] [place] [address] Ayesha Szymanski NP Acute otitis media, unspecified otitis media type 07/09/2025 Travel from Last 3 Months Social History Tobacco [...] with others, in a hotel, in a penitentiary, living outside on the street, on a [...] Description 11/04/2025 3:45 PM EST Office Visit [facility] [address] [place] [address] Ayesha Szymanski NP [address] [place], [place] [id number] Health Maintenance Due Date Last Done Comments [...] of 2) 2021 COVID-19 Vaccine ( - 2024-2 6 season) 2025 Influenza Vaccine (#1) 2025 Depression [...] PM EDT Narrative 08/21/2025 2:39 PM EDT [place] [address] Ultrasound Report Signed with Carmen Patient: Filippo Santiago MR#: [id number] : 1970 Acct:[id number] Age/Sex: 55 / M ADM Date: 08/20/25 Loc: HO.US Attending Dr: Ayesha Szymanski NP Ordering Physician: Ayesha Szymanski NP Date of Service: 08/20/25 Procedure(s): US pelvic limited Accession Number(s): [id number] cc: Ayesha Szymanski NP Reason for Exam: ? hernia, RLQ PAIN ADDENDUM This document has been electronically signed by: Yaneli Iglesias MD on 08/21/2025 14:37:42 ADDENDUM: Receipt of this report by the clinical staff was confirmed with Catie Contreras RN on Aug 21, 2025 14:50:00 EDT. This document has been electronically signed by: Bailee Valentin on 08/21/2025 14:51:12 Addendum Dictated By: aYneli Iglesias MD Addendum Signed By: <Electronically signed by Yaneli Iglesias MD in OV> 08/21/251450 Addendum Cosigned By: DD/ /15/1436 TD/TT: 08/21/2512/15/1450 CLINICAL HISTORY: ? hernia, RLQ PAIN Targeted ultrasound of right inguinal region Comparison: None provided Technique: Targeted sonographic imaging, including color Doppler imaging to the area of interest of right inguinal region was performed by the tanning solution maker. Multiple lifeline representatives static and cine images were saved for [...] in OV> 08/21/251438 DD/ 36 TD/TT: 08/21/251436 Cotton Header: Procedure Note Donotuseinterpreter, Image - 08/21/2025 [place] [address] Ultrasound Report Signed with Addenda Patient: Filippo SantiagoMR#: [id number] : 1970Acct:[id number] Age/Sex: 55 / MADM Date: 08/20/25 Loc: .US Attending Dr: Ayesha Szymanski NP Ordering Physician: Ayesha Szymanski NP Date of Service: 08/20/25 Procedure(s): US pelvic limited Accession Number(s): [id number] cc: Ayesha Szymanski NP Reason for Exam: [...] right inguinal region was performed by the tanning solution maker. Multiple lifeline representatives static and cine images were saved for [...] in OV> 08/21/251438 DD/ 36 TD/TT: 08/21/251436 Cotton Header: us Ayesha Szymanski NP Peña US PROCEDURES Edited Result - Final from Last 3 Months Insurance [facility] C3 Care Teams Emr Specialist Relationship Specialty Start Date End Date Ayesha Szymanski NP [address] [place] [phone] PCP - General Family Medicine 01/21/25
== END 2025-10-04 11:34 | disposition home or self-care (01) ==
LOC: HO.HOS 11:16
DX: M65.4 Radial styloid tenosynovitis [de Quervain] (principal)
CPT/HCPCS: 99213

== ENCOUNTER → 2025-10-04 11:16 | Outpatient (BNVA) | payer MEDICAID, SELFPAY | DX: M65.4 Radial styloid tenosynovitis [de Quervain] (principal) | CPT/HCPCS: 99212 ==

== ENCOUNTER 2025-10-08 11:15 | Outpatient (AMB) | payer MEDICAID, SELFPAY ==
--- NOTE | 2025-10-08 11:17 | MHC.OFFVIS ---
Vital Signs 10/08/25 13:57 Height 5 ft 8 in Weight 178 lb 9.191 oz BMI 27.1 BP 130/82 Blood Pressure Location Lt brachial Position Sitting Intake Visit Reasons: S/P RIH w/mesh Intake Note: Patient is seen in office for post op assessment post right inguinal hernia repair. Pt c/o: admits to discomfort when turning at night on the right groin, denies any other concerns surgery:09/26/25 (SKY) Accompanied by: Spouse Allergies No Known Allergies Allergy (Verified 10/08/25 13:57) HPI HPI S/P RIH w/mesh: Details: In-house sign language interpreter Felicia used for this evaluation. Only concern is some pain with movement, feels a pulling sensation. Otherwise diet and bowel function at baseline. Denies fevers or chills, denies nausea or vomiting. Has been avoiding heavy lifting. Denies issues with urination PFSH Medical History No pertinent past medical history Surgical History (Updated 10/09/25 @ 09:29 by Karsten Rocha PA-C) Hx of right inguinal hernia repair (09/26/25) H/O tooth extraction Social History Alcohol intake: never Comment: some grimacing when standing, reported no pain Patient Tobacco Use Status: Never used Tobacco Current occupational status: employed Current occupation: warehouse, rt handed Physical Exam Vital Signs: Last Vital Signs BP 130/82 10/08/25 13:57 BMI result Body Mass Index 27.1 Const General: comfortable and no acute distress Orientation/consciousness: patient oriented x3 GI Other: Right inguinal hernia repair site: Mild edema and induration, incision site intact, clean and dry, no surrounding erythema minimally tender. Palpation (GI): Soft to palpation and nontender Neuro General: patient oriented x3 Assessment & Plan Assessment & Plan (1) Hx of right inguinal hernia repair: Onset Date: 09/26/25 Comment: Larry Cook MD Code(s): Z98.890 - Other specified postprocedural states; Z87.19 - Personal history of other diseases of the digestive system Category: Medical Plan 55-year-old male s/p right inguinal hernia with mesh with Dr. Cook on 09/26/2025 returning to the office for routine follow up. Reports overall he is doing well pain is minimal, but does have some pain with ambulation describes a sharp stabbing pain. Reassured him this is appropriate at this stage postoperatively sickly due to some of the postsurgical changes and mesh healing, this should improve with time. Diet and bowel function at baseline. Denies fevers chills, no issues with urination. On exam incision site appears to be healing well, there was some mild induration and edema localized to the incision site, appears appropriate for this point postoperatively. There was no concern for infection. We will continue with activity restrictions no heavy lifting greater than 15-20 lb until at least next appointment. He will return in 2-3 weeks for re-evaluation. He can call to be seen earlier with any concerns prior to his next appointment. Coding Level of Care Code Global (47989) Diagnoses Hx of right inguinal hernia repair Z98.890; Z87.19
[2025-10-08 13:57] VITALS: BP 130/82; BMI 27.1
== END 2025-10-08 11:45 | disposition home or self-care (01) ==
PROVIDERS: PCP Nurse Practitioner Family
DX: Z98.890 Other specified postprocedural states (principal); Z87.19 Personal history of other diseases of the digestive system
CPT/HCPCS: 99024

== ENCOUNTER → 2025-10-08 11:15 | Outpatient (BNVA) | payer MEDICAID, SELFPAY | PROVIDERS: PCP Nurse Practitioner Family | DX: Z98.890 Other specified postprocedural states (principal); Z87.19 Personal history of other diseases of the digestive system | CPT/HCPCS: 99212 ==

== ENCOUNTER 2025-10-29 11:46 | Outpatient (AMB) | payer MEDICAID, SELFPAY ==
[2025-10-29 11:48] VITALS: BP 132/78; PULSE 71; RESP 16; TEMP 35.9; O2SAT 98; BMI 27.9
--- NOTE | 2025-10-29 11:48 | MHC.OFFVIS ---
Vital Signs 10/29/25 11:48 Height 5 ft 8 in Weight 183 lb 6.793 oz BMI 27.9 BP 132/78 Blood Pressure Location Lt brachial Position Sitting Respiration 16 Pulse 71 Pulse Source Pulse Oximeter Temp 96.6 F L Temp Source Temporal Artery Scan Pulse Oximetry (%) 98 Oxygen Delivery Method Room Air Intake Visit Reasons: 3 wks S/P RIH w/mesh Sleep Lab Technician Required: Yes Accompanied by: Self / Same As Patient Allergies No Known Allergies Allergy (Verified 10/29/25 11:53) HPI HPI 3 wks S/P RIH w/mesh: Details: In-house diplomatic interpreter Felicia used for this evaluation. Still has some pain with movement but overall improving. Diet and bowel function at baseline. He has no concerns, just wants to returned to work, but job does require heavy lifting. [facility] Medical History No pertinent past medical history Surgical History Hx of right inguinal hernia repair (09/26/25) H/O tooth extraction Social History Alcohol intake: never Comment: some grimacing when standing, reported no pain Patient Tobacco Use Status: Never used Tobacco Current occupational status: employed Current occupation: warehouse, rt handed Physical Exam Vital Signs: Last Vital Signs Temp 96.6 F L 10/29/25 11:48 Pulse 71 10/29/25 11:48 Resp 16 10/29/25 11:48 BP 132/78 10/29/25 11:48 Pulse Ox 98 10/29/25 11:48 Oxygen Delivery Method Room Air 10/29/25 11:48 BMI result Body Mass Index 27.9 Const General: comfortable and no acute distress Orientation/consciousness: patient oriented x3 GI Other: Right inguinal hernia repair site: Well healed, Mild induration, incision site intact, clean and dry, no surrounding erythema minimally tender. No evidence of infection Palpation (GI): Soft to palpation and nontender Neuro General: patient oriented x3 Assessment & Plan Assessment & Plan (1) Hx of right inguinal hernia repair: Onset Date: 09/26/25 Comment: Larry Cook MD Code(s): Z98.890 - Other specified postprocedural states; Z87.19 - Personal history of other diseases of the digestive system Category: Medical Plan 55-year-old male s/p right inguinal hernia with mesh with Dr. Cook on 09/26/2025 returning to the office for routine follow up. Reports overall he is doing well pain is minimal, but does have some pain with ambulation describes a sharp stabbing pain. This remains but is overall improved since last visit. Reassured him this is appropriate at this stage postoperatively and should continue to improve with the next 1-2 months. Diet and bowel function at baseline. Denies fevers chills, no issues with urination. On exam incision site appears to be healing well, there was some mild induration deep to the incision site, appears to just be postsurgical changes. Instructed him to do warm compresses 2 to 3 times a day to help resolve this. There was no concern for infection. Abdomen otherwise soft and benign. We will continue with activity restrictions no heavy lifting greater than 15-20 lb for 2 weeks. No longer requiring follow up, can follow up as needed with any concerns in the future. Coding Level of Care Code Global (24757) Diagnoses Hx of right inguinal hernia repair Z98.890; Z87.19
== END 2025-10-29 12:20 | disposition home or self-care (01) ==
PROVIDERS: PCP Nurse Practitioner Family
DX: Z98.890 Other specified postprocedural states (principal); Z87.19 Personal history of other diseases of the digestive system
CPT/HCPCS: 99024

== ENCOUNTER → 2025-10-29 11:46 | Outpatient (BNVA) | payer MEDICAID, SELFPAY | PROVIDERS: PCP Nurse Practitioner Family | DX: Z48.815 Encounter for surgical aftercare following surgery on the digestive system (principal); R10.31 Right lower quadrant pain; Z98.890 Other specified postprocedural states; Z87.19 Personal history of other diseases of the digestive system | CPT/HCPCS: 99212 ==

== ENCOUNTER 2025-11-04 11:14 | Outpatient (REF) | payer MEDICAID, SELFPAY ==
[2025-11-04 14:21] LABS: Cholesterol 135 mg/dL (<200); HDL Cholesterol 35 mg/dL (>40); Triglycerides 231 mg/dL (<150)
[2025-11-05 04:52] LABS: HIV Num 1 0.10 S/CO (0.00-0.99); ~HepC Num1 0.08 S/CO (0.00-0.79); ~Hepatitis C Antibody Nonreactive (Nonreactive)
== END 2025-11-04 11:15 | disposition home or self-care (01) ==
LOC: HO.HHCL 11:14
PROVIDERS: PCP Nurse Practitioner Family; Visit Provider Nurse Practitioner Family
DX: Z00.00 Encounter for general adult medical examination without abnormal findings (principal); Z11.4 Encounter for screening for human immunodeficiency virus [HIV]; Z11.59 Encounter for screening for other viral diseases
CPT/HCPCS: 36415; 80061; 86803; 87389